=== PATIENT | female | born 1960 | race Caucasian/White ===

== ENCOUNTER → 2017-11-05 | Outpatient (CLI) | payer MEDICAID, SELFPAY | PROVIDERS: Visit Provider Orthopaedic Surgery Orthopaedic Surgery of the Spine | DX: M54.2 Cervicalgia (principal); R20.0 Anesthesia of skin | CPT/HCPCS: 72141; 76376 ==

== ENCOUNTER 2017-11-11 09:35 | Emergency (ER) | payer MEDICAID, SELFPAY | END 2017-11-11 12:58 | disposition home or self-care (01) | PROVIDERS: Emergency Provider Emergency Medicine; Family Provider Internal Medicine; Visit Provider Emergency Medicine | DX: G44.89 Other headache syndrome (principal); J32.9 Chronic sinusitis, unspecified; R55 Syncope and collapse; I10 Essential (primary) hypertension; E78.5 Hyperlipidemia, unspecified; Z88.0 Allergy status to penicillin | CPT/HCPCS: 70450; 70486; 71020; 80053; 81001; 82550; 82553; 84484; 85025; 87070; 87430; 87804; 93005; 96365; 96375; 99285 ==

== ENCOUNTER 2017-11-13 10:37 | Emergency (ER) | payer MEDICAID, SELFPAY | END 2017-11-13 13:00 | disposition home or self-care (01) | PROVIDERS: Emergency Provider Emergency Medicine; Family Provider Internal Medicine; Visit Provider Emergency Medicine | DX: T67.1XXA Heat syncope, initial encounter; H65.03 Acute serous otitis media, bilateral | CPT/HCPCS: 36415; 70450; 71020; 80053; 82550; 82553; 84484; 85025; 93005; 93041; 99284 ==

== ENCOUNTER → 2017-11-16 15:09 | Outpatient (CLI) | payer MEDICAID, SELFPAY | PROVIDERS: PCP Internal Medicine; Visit Provider Internal Medicine | DX: R55 Syncope and collapse (principal) | CPT/HCPCS: 93225; 93226 ==

== ENCOUNTER → 2017-11-22 13:24 | Outpatient (CLI) | payer MEDICAID, SELFPAY ==
--- NOTE | 2017-11-22 13:26 | CA_ITS ---
PROCEDURE: 2-D M-mode and color Doppler study INDICATIONS FOR THE TEST: Chest pain COPD Heart Murmur Tobacco Smoking Palpitations Fatigue SyncopeX Edema HypertensionXDiabetes Mellitus Rheumatic Fever SOB RIOJAS Obesity HyperlipidemiaX Family History HD Additional History PATIENT INFORMATION HEIGHT: 63 WEIGHT:163 GENDER: Female B/P:140/80 2-D/M-MODE INTERPRETATION: 2-D MEASUREMENTS OBSERVED VALUES IN CMS Right Ventricular Dimension (RVDd) .9 Interventricular Septum (Thickness)(IVsd) .8 Left Ventricular Internal Dimensions(LVIDd) 4.3 Left Ventricular Posterior Wall (Thickness)(LVPWd) .8 Aortic Root 3.4 Aortic Cusp Separation 1.7 Left Atrial Dimensions (LAD) 3.0 2D 1. Left atrium is qualitatively mildly enlarged, left ventricle is normal size, left ventricle wall thickness is upper limit of normal, there is preserved left ventricular systolic function, visually estimated ejection fraction 55% with no obvious regional wall motion abnormality. 2. The right atrium and right ventricle are normal size and contractility. 3. The aortic valve is minimally thickened and fibrosed. 4. The mitral and tricuspid valve are structurally normal. 5. The pulmonic valve is poorly visualized. 6. No significant pericardial effusion noted. DOPPLER INTERROGATION: Doppler interrogation of the aortic, mitral and tricuspid valvular presence of mild mitral and tricuspid regurgitation, calculated right ventricular systolic pressure is 44 mmHg consistent with moderate pulmonary hypertension, grade 1 diastolic dysfunction seen without tissue Doppler evidence of raised left atrial pressure. CONCLUSION: 1. Mildly enlarged left atrium, normal left ventricular size, preserved left ventricular systolic function, visually estimated ejection fraction 55% with no obvious regional wall motion abnormality, grade 1 diastolic dysfunction seen without tissue Doppler evidence of raised left atrial pressure. 2. Mild mitral and tricuspid regurgitation. 3. No significant pericardial effusion noted.
== END ==
PROVIDERS: Family Provider Internal Medicine; PCP Internal Medicine; Visit Provider Internal Medicine
DX: R55 Syncope and collapse (principal)
CPT/HCPCS: 93306

== ENCOUNTER → 2017-12-13 10:48 | Outpatient (POV) | payer MEDICAID, SELFPAY | PROVIDERS: Family Provider Internal Medicine; PCP Internal Medicine; Visit Provider Specialist | DX: R20.0 Anesthesia of skin (principal); G56.03 Carpal tunnel syndrome, bilateral upper limbs | CPT/HCPCS: 95910; 95886 ==

== ENCOUNTER → 2017-12-27 14:06 | Outpatient (POV) | payer MEDICAID, SELFPAY ==
[2017-12-27 14:11] VITALS: BP 147/83; PULSE 66; RESP 18; O2SAT 98; BMI 28.8
--- NOTE | 2017-12-27 14:50 | HMH.PAINSOAP ---
[facility] Pain Management SOAP Note Subjective:: Patient is a pleasant 57-year-old white female who we are treating for pain secondary to bilateral sacroiliitis. She was recently scheduled for a left SI joint injection however due to illness was unable to make it to her appointment. Patient is feeling much better now however she is having some issues with her blood pressure. She is meeting with her primary care physician on Wednesday to address this issue. Patient rates her pain a 5 out of 10 today. She states that it gets worse when she is standing for long periods of time on a hard floor. And is alleviated with sitting down. However this can sometimes be uncomfortable as well. Patient has had sacroiliac injections in the past with significant relief. Patient wishes to move forward with bilateral sacroiliac joint injections. Objective:: Physical Exam General: Alert and oriented x3, no acute distress, pleasant and cooperative, [on room air] Lungs: Resps E/U, Symmetrical chest expansion Musculoskeletal: Flexion and extension of lumbar spine somewhat guarded secondary to pain, deep tendon reflexes normal, strength in upper and lower extremities [5/5], slightly antalgic gait noted, positive Marii's test bilaterally. 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 Patient was told that if primary care physician felt that blood pressure issue would be contradictory to the injection to let us know. Patient states she is feeling much better now. I believe that this would be a good injection for her due to the efficacy of it in the past. This note was dictated using voice recognition software may include errors and omissions.
--- NOTE | 2017-12-27 14:54 | P.CONS_ITS ---
[facility] Pain Management SOAP Note Subjective:: Patient is a pleasant 57-year-old white female who we are treating for pain secondary to bilateral sacroiliitis. She was recently scheduled for a left SI joint injection however due to illness was unable to make it to her appointment. Patient is feeling much better now however she is having some issues with her blood pressure. She is meeting with her primary care physician on Wednesday to address this issue. Patient rates her pain a 5 out of 10 today. She states that it gets worse when she is standing for long periods of time on a hard floor. And is alleviated with sitting down. However this can sometimes be uncomfortable as well. Patient has had sacroiliac injections in the past with significant relief. Patient wishes to move forward with bilateral sacroiliac joint injections. Objective:: Physical Exam General: Alert and oriented x3, no acute distress, pleasant and cooperative, [ on room air] Lungs: Resps E/U, Symmetrical chest expansion Musculoskeletal: Flexion and extension of lumbar spine somewhat guarded secondary to pain, deep tendon reflexes normal, strength in upper and lower extremities [5/5], slightly antalgic gait noted, positive Marii's test bilaterally. Neurological: speech clear, handkerchief folder equal, no gross sensory deficits Assessment:: Bilateral sacroiliitis Plan:: We will plan a bilateral SI joint injection. Patient was told that if primary care physician felt that blood pressure issue would be contradictory to the injection to let us know. Patient states she is feeling much better now. I believe that this would be a good injection for her due to the efficacy of it in the past. This note was dictated using voice recognition software may include errors and omissions.
== END ==
PROVIDERS: Family Provider Internal Medicine; PCP Internal Medicine; Visit Provider Clinical Nurse Specialist Family Health
DX: M46.1 Sacroiliitis, not elsewhere classified (principal)
CPT/HCPCS: 99212

== ENCOUNTER → 2018-01-07 15:02 | Day surgery (SDC) | payer MEDICAID, SELFPAY ==
[2018-01-07 15:07] VITALS: BP 146/82; PULSE 75; RESP 18; TEMP 36.6; O2SAT 97; BMI 28.8
--- NOTE | 2018-01-07 15:30 | HMH.PMPROC ---
- Procedure Date: 01/07/18 Time: 15:30 Anesthesiologist:: Davidson Perdomo MD Complications:: None Pre-procedure Diagnosis:: Sacroiliitis Post-procedure Diagnosis:: Same Indications for Procedure:: This patient is a pleasant 57-year-old white female who we are treating for bilateral hip pain. She is tender over both SI joints. Marii's test is positive bilaterally. We will do bilateral SI joint injections today to see if this gives her some relief. Procedure Details:: B/L SI joint injection under fluoroscopy Informed consent was obtained and the risks and benefits of the procedure was explained to the patient. The patient was taken to the procedure room and placed prone on the procedure table. The patient was prepped using ChloraPrep. The skin and subcutaneous tissues overlying the SI joints were anesthetized using lidocaine. I placed a 22-gauge needle first in the left SI joint and second in the right SI joint. Needle placement was confirmed with dye. After this we injected 5 mL bupivacaine 0.25% and Depo-Medrol 40 mg into each SI joint. Patient tolerated the procedure well with no complication. Plan and Disposition:: We will follow-up with her in 2 weeks. We will reevaluate her symptoms at that time.
[2018-01-07 15:36] VITALS: BP 161/84; PULSE 82; RESP 18
[2018-01-07 15:38] VITALS: BP 154/88; PULSE 76; RESP 18
[2018-01-07 16:25] VITALS: BP 131/88; PULSE 68; RESP 18; TEMP 36.6; O2SAT 96
== END ==
PROVIDERS: Family Provider Internal Medicine; PCP Internal Medicine; Visit Provider Anesthesiology
DX: M46.1 Sacroiliitis, not elsewhere classified (principal)
CPT/HCPCS: 27096; G0260; J1030; Q9966

== ENCOUNTER → 2018-01-25 14:51 | Outpatient (POV) | payer MEDICAID, SELFPAY ==
[2018-01-25 15:00] VITALS: BP 126/81; PULSE 76; RESP 16; O2SAT 97; BMI 28.3
--- NOTE | 2018-01-25 15:57 | HMH.PAINSOAP ---
[facility] Pain Management SOAP Note Subjective:: Patient is a very pleasant 57-year-old white female who presents today for follow-up after bilateral SI joint injections. Patient is having significant relief from her injections and states that she is not having any pain at this time. Patient is continuing to have right shoulder pain. She is seen Dr. Hanson for this. She states that she may have to have surgery again. Patient does have some left hip pain moves a certain way. Patient does still work full-time. Patient does not have any brace or anything giving her support during her work. ROS General: no recent weight change, no fever, no sleep disturbances Respiratory: no cough, no shortness of air, no recurring pulmonary infections Cardiovascular/Peripheral Vascular: No chest pain, No palpitations, no edema, no shortness of breath. Gastrointestinal: no incontinence, normal bowel movements reported Genitourinary: no incontinence Musculoskeletal: SI joint pain, right shoulder pain Psychiatric: normal mood/ affect Neurological: [denies weakness in extremities], [denies balance issues] Objective:: Physical Exam General: Alert and oriented x3, no acute distress, pleasant and cooperative, [on room air] Lungs: Resps E/U, Symmetrical chest expansion, Eyes: PERRL Musculoskeletal: Flexion and extension of lumbar spine somewhat guarded secondary to pain, deep tendon reflexes normal, strength in upper and lower extremities [5/5], slightly antalgic gait noted Neurological: speech clear, rehab assistant equal, no gross sensory deficits Assessment:: Sacroiliitis Plan:: We will order an SI belt or brace for this patient. I will give her prescription or order for this and we will see if her insurance will cover it. I believe this will be helpful for her during her long work hours. Patient is doing well after her SI joint injection. We will follow-up with her in 3 months and reevaluate her symptoms at that time. Patient has been instructed to call the office if she has a need for us before then. This note was dictated using voice recognition software and may contain errors or omissions
== END ==
PROVIDERS: Family Provider Internal Medicine; PCP Internal Medicine; Visit Provider Clinical Nurse Specialist Family Health
DX: M46.1 Sacroiliitis, not elsewhere classified (principal)
CPT/HCPCS: 99212

== ENCOUNTER → 2018-02-25 10:25 | Outpatient (CLI) | payer MEDICAID, SELFPAY ==
[2018-02-25 11:55] LABS: Thyroid Stimulating Hormone 1.35 uIU/ml (0.358-3.740)
== END ==
PROVIDERS: Visit Provider Internal Medicine
DX: L65.9 Nonscarring hair loss, unspecified (principal)
CPT/HCPCS: 36415; 84443

== ENCOUNTER → 2018-04-26 08:43 | Outpatient (POV) | payer MEDICAID, SELFPAY ==
--- NOTE | 2018-04-26 09:05 | HMH.PAINSOAP ---
[facility] Pain Management SOAP Note Subjective:: Patient is a pleasant 57-year-old white female who presents today for follow-up. Patient has had several rounds of SI joint injections with good relief however today she is presenting with more low back pain radiating into her bilateral hips and legs. Patient does not have any lumbar imaging. Patient rates her pain today a 3 out of 10 however if she stands for long periods of time during work it elevates an 8 out of 10. ROS General: no recent weight change, no fever, no sleep disturbances Respiratory: no cough, no shortness of air, no recurring pulmonary infections Cardiovascular/Peripheral Vascular: No chest pain, No palpitations, no edema, no shortness of breath. Gastrointestinal: no incontinence, normal bowel movements reported Genitourinary: no incontinence Musculoskeletal: SI joint pain, low back pain, bilateral leg pain Psychiatric: normal mood/ affect Neurological: [denies weakness in extremities], [denies balance issues] Objective:: Physical Exam General: Alert and oriented x3, no acute distress, pleasant and cooperative, [on room air] Lungs: Resps E/U, Symmetrical chest expansion, Eyes: PERRL Musculoskeletal: Flexion and extension of lumbar spine somewhat guarded secondary to pain, deep tendon reflexes normal, strength in upper and lower extremities [5/5], [abnormal gait noted], bilateral straight leg raise test positive at 30? Neurological: speech clear, otologist equal, no gross sensory deficits Assessment:: Low back pain, sacroiliitis Plan:: We will schedule lumbar MRI. Patient will return after this so that we can move forward with the plan of care. Patient has been instructed to call the office if she has any issues prior to this. Patient has tried and failed injections, physical therapy, stretching therapies, medications, anti-inflammatories. This note was dictated using voice recognition software and may contain errors or omissions
--- NOTE | 2018-04-26 09:08 | P.CONS_ITS ---
[facility] Pain Management SOAP Note Subjective:: Patient is a pleasant 57-year-old white female who presents today for follow- up. Patient has had several rounds of SI joint injections with good relief however today she is presenting with more low back pain radiating into her bilateral hips and legs. Patient does not have any lumbar imaging. Patient rates her pain today a 3 out of 10 however if she stands for long periods of time during work it elevates an 8 out of 10. ROS General: no recent weight change, no fever, no sleep disturbances Respiratory: no cough, no shortness of air, no recurring pulmonary infections Cardiovascular/Peripheral Vascular: No chest pain, No palpitations, no edema, no shortness of breath. Gastrointestinal: no incontinence, normal bowel movements reported Genitourinary: no incontinence Musculoskeletal: SI joint pain, low back pain, bilateral leg pain Psychiatric: normal mood/ affect Neurological: [denies weakness in extremities], [denies balance issues] Objective:: Physical Exam General: Alert and oriented x3, no acute distress, pleasant and cooperative, [ on room air] Lungs: Resps E/U, Symmetrical chest expansion, Eyes: PERRL Musculoskeletal: Flexion and extension of lumbar spine somewhat guarded secondary to pain, deep tendon reflexes normal, strength in upper and lower extremities [5/5], [abnormal gait noted], bilateral straight leg raise test positive at 30? 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 Patient will return after this so that we can move forward with the plan of care. Patient has been instructed to call the office if she has any issues prior to this. Patient has tried and failed injections, physical therapy, stretching therapies, medications, anti- inflammatories. This note was dictated using voice recognition software and may contain errors or omissions
[2018-04-26 09:13] VITALS: BP 141/92; PULSE 64; RESP 18; O2SAT 99; BMI 28.8
== END ==
PROVIDERS: Family Provider Internal Medicine; PCP Internal Medicine; Visit Provider Clinical Nurse Specialist Family Health
DX: M46.1 Sacroiliitis, not elsewhere classified (principal)
CPT/HCPCS: 99212

== ENCOUNTER → 2018-05-10 07:50 | Outpatient (CLI) | payer MEDICAID, SELFPAY ==
--- NOTE | 2018-05-10 07:57 | MR_ITS ---
MR lumbar spine wo con, MR 3-d myelogram/MRCP HISTORY: LBP with Bilateral Hip pain. Bilateral Leg pain. Numbness and tingling in LT leg. Symptoms [id number]. No trauma. ITS.REASON: BACK PAIN ORDERING PHYSICIAN: Lissa Solares PATIENT AGE: 57 years Comparison: X-RAY 07/05/16, MRI 06/19/14 TECHNIQUE: Standard multiplanar multiecho sequences are performed without contrast. 3-D MIP and myelographic images are also rendered and reviewed FINDINGS: The spinal cord ends at the L1-L2 level. L1-L2, L2-L3, L3-L4 have an unremarkable appearance. L4-L5: Minimal left foraminal disc protrusion causing mild left-sided foraminal narrowing. This is similar when compared to the previous exam L5-S1: Unremarkable. Fluid signal intensity noted in the renal suzanna bilaterally and could be due to either hilar versus or peripelvic renal cyst. CT urography may confirm IMPRESSION: 1. Overall no significant change small left foraminal disc protrusion with mild left foraminal narrowing 2. Bilateral parapelvic renal cyst versus hydronephrosis
--- NOTE | 2018-05-10 07:57 | MR_ITS ---
MR lumbar spine wo con, MR 3-d myelogram/MRCP HISTORY: LBP with Bilateral Hip pain. Bilateral Leg pain. Numbness and tingling in LT leg. Symptoms [id number]. No trauma. ITS.REASON: BACK PAIN ORDERING PHYSICIAN: Lissa Solares PATIENT AGE: 57 years Comparison: X-RAY 07/05/16, MRI 06/19/14 TECHNIQUE: Standard multiplanar multiecho sequences are performed without contrast. 3-D MIP and myelographic images are also rendered and reviewed FINDINGS: The spinal cord ends at the L1-L2 level. L1-L2, L2-L3, L3-L4 have an unremarkable appearance. L4-L5: Minimal left foraminal disc protrusion causing mild left-sided foraminal narrowing. This is similar when compared to the previous exam L5-S1: Unremarkable. Fluid signal intensity noted in the renal suzanna bilaterally and could be due to either hilar versus or peripelvic renal cyst. CT urography may confirm IMPRESSION: 1. Overall no significant change small left foraminal disc protrusion with mild left foraminal narrowing 2. Bilateral parapelvic renal cyst versus hydronephrosis
== END ==
PROVIDERS: Family Provider Internal Medicine; PCP Internal Medicine; Visit Provider Clinical Nurse Specialist Family Health
DX: M54.5 Low back pain (principal)
CPT/HCPCS: 72148; 76376

== ENCOUNTER → 2018-05-16 09:59 | Outpatient (POV) | payer MEDICAID, SELFPAY ==
[2018-05-16 10:26] VITALS: BP 152/91; PULSE 67; RESP 18; O2SAT 98; BMI 28.8
--- NOTE | 2018-05-16 11:11 | HMH.PAINSOAP ---
[facility] Pain Management SOAP Note Subjective:: Patient is a pleasant 57-year-old white female who presents today for follow-up after recent lumbar MRI. Patient states she still having low back pain radiating into her her bilateral hips and legs the left side being worse. Patient has had SI joint erections in the past with good relief however this pain is different and worsening. Patient's MRI is fairly benign however at the L4-L5 level she does have a foraminal disc protrusion. patient rates her pain a 6 out of 10 today. ROS General: no recent weight change, no fever, no sleep disturbances Respiratory: no cough, no shortness of air, no recurring pulmonary infections Cardiovascular/Peripheral Vascular: No chest pain, No palpitations, no edema, no shortness of breath. Gastrointestinal: no incontinence, normal bowel movements reported Genitourinary: no incontinence Musculoskeletal: Back pain, left leg pain, right leg pain Psychiatric: normal mood/ affect Neurological: [denies weakness in extremities], [denies balance issues] Objective:: Physical Exam General: Alert and oriented x3, no acute distress, pleasant and cooperative, [on room air] Lungs: Resps E/U, Symmetrical chest expansion, Eyes: PERRL Musculoskeletal: Flexion and extension of lumbar spine somewhat guarded secondary to pain, deep tendon reflexes normal, strength in upper and lower extremities [5/5], [abnormal gait noted] positive straight leg raise test bilaterally at 30? Neurological: speech clear, collision repairer equal, no gross sensory deficits Assessment:: Degenerative disc disease of lumbar spine, lumbar radiculopathy, sacroiliitis Plan:: We will schedule an L4-L5 lumbar epidural steroid injection for the patient. I believe that this may be beneficial given her symptomology. Patient's tried and failed physical therapy, anti-inflammatories, medications. Patient is continuing to do home stretching program and continuing to try to work. I will follow-up with the patient after her injection. Patient is not on any anticoagulation therapy. This note was dictated using voice recognition software and may contain errors or omissions
--- NOTE | 2018-05-16 11:14 | P.CONS_ITS ---
[facility] Pain Management SOAP Note Subjective:: Patient is a pleasant 57-year-old white female who presents today for follow-up after recent lumbar MRI. Patient states she still having low back pain radiating into her her bilateral hips and legs the left side being worse. Patient has had SI joint erections in the past with good relief however this pain is different and worsening. Patient's MRI is fairly benign however at the L4-L5 level she does have a foraminal disc protrusion. patient rates her pain a 6 out of 10 today. ROS General: no recent weight change, no fever, no sleep disturbances Respiratory: no cough, no shortness of air, no recurring pulmonary infections Cardiovascular/Peripheral Vascular: No chest pain, No palpitations, no edema, no shortness of breath. Gastrointestinal: no incontinence, normal bowel movements reported Genitourinary: no incontinence Musculoskeletal: Back pain, left leg pain, right leg pain Psychiatric: normal mood/ affect Neurological: [denies weakness in extremities], [denies balance issues] Objective:: Physical Exam General: Alert and oriented x3, no acute distress, pleasant and cooperative, [ on room air] Lungs: Resps E/U, Symmetrical chest expansion, Eyes: PERRL Musculoskeletal: Flexion and extension of lumbar spine somewhat guarded secondary to pain, deep tendon reflexes normal, strength in upper and lower extremities [5/5], [abnormal gait noted] positive straight leg raise test bilaterally at 30? Neurological: speech clear, button maker and installer equal, no gross sensory deficits Assessment:: Degenerative disc disease of lumbar spine, lumbar radiculopathy, sacroiliitis Plan:: We will schedule an L4-L5 lumbar epidural steroid injection for the patient. I believe that this may be beneficial given her symptomology. Patient's tried and failed physical therapy, anti-inflammatories, medications. Patient is continuing to do home stretching program and continuing to try to work. I will follow-up with the patient after her injection. Patient is not on any anticoagulation therapy. This note was dictated using voice recognition software and may contain errors or omissions
== END ==
PROVIDERS: Family Provider Internal Medicine; PCP Internal Medicine; Visit Provider Clinical Nurse Specialist Family Health
DX: M54.16 Radiculopathy, lumbar region (principal)
CPT/HCPCS: 99212

== ENCOUNTER → 2018-05-31 09:27 | Outpatient (POV) | payer MEDICAID, SELFPAY ==
[2018-05-31 09:42] VITALS: BP 145/85; PULSE 58; RESP 18; O2SAT 98; BMI 28.8
--- NOTE | 2018-05-31 09:50 | HMH.PAINSOAP ---
[facility] Pain Management SOAP Note Subjective:: Patient is a pleasant 57-year-old white female who presents today for follow-up. Patient was scheduled for lumbar epidural steroid injection however she states she would not like to move forward with this. Patient states that when she was and had an epidural she was told that she had a crooked spine. Patient states she has a fear of needles. Patient has had SI joint injections in the past with good relief however her pain is different and worsening. Patient's MRI does show degenerative changes at the L4-L5 level. Patient rates her pain a 2 out of 10 today. Patient also stating that she is going to not be returning to work. Patient got approved for her disability. Patient would like to discuss potential oral methods of controlling her pain. I discussed with her that we would not be medically managing her without first failure of injections. I discussed with the patient that she is welcome to return at any time if her pain worsens. ROS General: no recent weight change, no fever, no sleep disturbances Respiratory: no cough, no shortness of air, no recurring pulmonary infections Cardiovascular/Peripheral Vascular: No chest pain, No palpitations, no edema, no shortness of breath. Gastrointestinal: no incontinence, normal bowel movements reported Genitourinary: no incontinence Musculoskeletal: Back pain Psychiatric: normal mood/ affect Neurological: [denies weakness in extremities], [denies balance issues] Objective:: Physical Exam General: Alert and oriented x3, no acute distress, pleasant and cooperative, [on room air] Lungs: Resps E/U, Symmetrical chest expansion, Eyes: PERRL Musculoskeletal: Flexion and extension of lumbar spine somewhat guarded secondary to pain, deep tendon reflexes normal, strength in upper and lower extremities [5/5], slightly antalgic gait noted Neurological: speech clear, 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 Patient is welcome to return at any time. This note was dictated using voice recognition software and may contain errors or omissions
--- NOTE | 2018-05-31 09:53 | P.CONS_ITS ---
[facility] Pain Management SOAP Note Subjective:: Patient is a pleasant 57-year-old white female who presents today for follow- up. Patient was scheduled for lumbar epidural steroid injection however she states she would not like to move forward with this. Patient states that when she was and had an epidural she was told that she had a crooked spine. Patient states she has a fear of needles. Patient has had SI joint injections in the past with good relief however her pain is different and worsening. Patient's MRI does show degenerative changes at the L4-L5 level. Patient rates her pain a 2 out of 10 today. Patient also stating that she is going to not be returning to work. Patient got approved for her disability. Patient would like to discuss potential oral methods of controlling her pain. I discussed with her that we would not be medically managing her without first failure of injections. I discussed with the patient that she is welcome to return at any time if her pain worsens. ROS General: no recent weight change, no fever, no sleep disturbances Respiratory: no cough, no shortness of air, no recurring pulmonary infections Cardiovascular/Peripheral Vascular: No chest pain, No palpitations, no edema, no shortness of breath. Gastrointestinal: no incontinence, normal bowel movements reported Genitourinary: no incontinence Musculoskeletal: Back pain Psychiatric: normal mood/ affect Neurological: [denies weakness in extremities], [denies balance issues] Objective:: Physical Exam General: Alert and oriented x3, no acute distress, pleasant and cooperative, [ on room air] Lungs: Resps E/U, Symmetrical chest expansion, Eyes: PERRL Musculoskeletal: Flexion and extension of lumbar spine somewhat guarded secondary to pain, deep tendon reflexes normal, strength in upper and lower extremities [5/5], slightly antalgic gait noted 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 Patient is welcome to return at any time. This note was dictated using voice recognition software and may contain errors or omissions
== END ==
PROVIDERS: Family Provider Internal Medicine; PCP Internal Medicine; Visit Provider Clinical Nurse Specialist Family Health
DX: M46.1 Sacroiliitis, not elsewhere classified (principal)
CPT/HCPCS: 99212

== ENCOUNTER → 2018-09-22 08:49 | Outpatient (CLI) | payer MEDICAID, SELFPAY ==
[2018-09-22 11:26] LABS: Anion Gap 13.6 mEq/L (5-15); Blood Urea Nitrogen 15 mg/dL (7-18); Calcium 9.3 mg/dL (8.5-10.1); Carbon Dioxide 31 mmol/L (21.0-32.0); Chloride 100 mmol/L (98-107); Creatinine,Serum 0.76 mg/dL (0.55-1.02); Estimated Glomerular Filt Rate 78 ml/min (>60); GFR (African American) 94 ML/MIN (>60); Glucose 88 mg/dL (74-106); Potassium 4.6 mmoL/L (3.5-5.1); Sodium 140 mmol/L (136-145)
== END ==
PROVIDERS: Visit Provider Internal Medicine
DX: I10 Essential (primary) hypertension (principal)
CPT/HCPCS: 36415; 80048

== ENCOUNTER → 2018-11-11 11:46 | Outpatient (CLI) | payer MEDICAID, SELFPAY ==
--- NOTE | 2018-11-11 11:50 | XR_ITS ---
XR chest 2V HISTORY: ITS.REASON: ? RT LATERAL RIB FX,PAIN Right lateral chest and rib pain. ORDERING PHYSICIAN: Pravin Olson PATIENT AGE: 58 years Technique: PA and lateral chest COMPARISON: Previous PA and lateral chest 08/13/2018. FINDINGS: The lungs are well expanded clear with no discrete acute findings. Subtle coarsening markings right infrahilar region probably stable mild apical pleural parenchymal scarring stable/minimal. There are subtle elevation left hemidiaphragm. Unchanged. Heart, suzanna and mediastinal structures satisfactory. No pneumothorax. No pleural effusion. Chest wall with no prominent findings breast see no definitive right rib fracture. T-spine is intact. Normal pulmonary vascularity IMPRESSION . Lungs clear. Nothing definitely acute. No obvious chest wall or right rib abnormalities evident on this this standard PA & lateral chest film. No pneumothorax no pleural effusion.
== END ==
PROVIDERS: PCP Internal Medicine; Visit Provider Internal Medicine
DX: R07.81 Pleurodynia (principal)
CPT/HCPCS: 71046

== ENCOUNTER → 2019-03-08 10:00 | Outpatient (CLI) | payer MEDICARE, MEDICAID, SELFPAY ==
--- NOTE | 2019-03-08 10:06 | XR_ITS ---
XR knee LT 2V HISTORY: ITS.REASON: LT KNEE PAIN ORDERING PHYSICIAN: Pravin Olson PATIENT AGE: 58 years COMPARISON: None FINDINGS: No fracture or dislocation. No lytic or blastic change. Normal mineralization. There are minimal osteoarthritic changes of the medial compartment IMPRESSION: Minimal osteoarthritis otherwise negative
== END ==
PROVIDERS: PCP Internal Medicine; Visit Provider Internal Medicine
DX: M25.562 Pain in left knee (principal)
CPT/HCPCS: 73560

== ENCOUNTER 2019-09-13 14:52 | Outpatient (RCR) | payer MEDICARE, MEDICAID, SELFPAY | END 2019-09-13 15:10 | disposition home or self-care (01) | LOC: PT 14:52 | PROVIDERS: Visit Provider Orthopaedic Surgery | DX: S93.491A Sprain of other ligament of right ankle, initial encounter (principal) | CPT/HCPCS: 97760 ==

== ENCOUNTER → 2019-11-28 15:08 | Outpatient (CLI) | payer MEDICARE, SELFPAY ==
--- NOTE | 2019-11-28 15:19 | XR_ITS ---
PROCEDURE: XR THORACIC SPINE 3V CLINICAL INDICATION: THORACIC PAIN COMPARISON: CXR2V XR chest 2V from 11/11/2018 FINDINGS: There is minimal upper thoracic curvature convex left. There is mild wedging involving what appears to represent T9 which could represent an acute mild wedge compression fracture. MRI may confirm. IMPRESSION: Mild wedging of T9 which may be acute otherwise negative Dictated by: Pierre Lindsey MD 11/28/2019 16:11 Electronically signed by Pierre Lindsey MD in [place] 11/28/2019 16:11
== END ==
PROVIDERS: PCP Internal Medicine; Visit Provider Internal Medicine
DX: M54.6 Pain in thoracic spine (principal)
CPT/HCPCS: 72072

== ENCOUNTER 2020-01-09 09:00 | Outpatient (RCR) | payer MEDICARE, SELFPAY | END 2020-01-09 10:05 | disposition home or self-care (01) | LOC: PT 09:00 | PROVIDERS: PCP Internal Medicine; Visit Provider Internal Medicine | DX: M25.511 Pain in right shoulder (principal); M54.6 Pain in thoracic spine; M54.2 Cervicalgia | CPT/HCPCS: 97010; 97014; 97035; 97110; 97140; 97163; 97164; G0283 ==

== ENCOUNTER → 2020-08-29 11:56 | Outpatient (CLI) | payer MEDICARE, SELFPAY ==
--- NOTE | 2020-08-29 12:00 | XR_ITS ---
PROCEDURE: XR LUMBAR SPINE MIN 4V CLINICAL INDICATION: UPPER LUMBAR BACK PAIN COMPARISON: CR LS5 LUMBAR SPINE 5 VIEWS from 07/05/2016 FINDINGS: No fracture or dislocation. No lytic or blastic change. There is normal mineralization. Mild facet arthritic changes once again noted at L4-L5 and S1. The disc spaces are well preserved. Other findings:None. IMPRESSION: Mild facet arthritic changes otherwise negative. No change with no acute finding Dictated by: Pierre Lindsey MD 08/29/2020 12:48 Pierre Lindsey MD in [place] 08/29/2020 12:48
== END ==
PROVIDERS: PCP Internal Medicine; Visit Provider Internal Medicine
DX: M54.9 Dorsalgia, unspecified (principal); M54.5 Low back pain
CPT/HCPCS: 72110

== ENCOUNTER → 2021-01-31 15:25 | Outpatient (CLI) | payer MEDICARE, SELFPAY ==
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
== END ==
PROVIDERS: PCP Internal Medicine; Visit Provider Internal Medicine
DX: M79.604 Pain in right leg (principal)
CPT/HCPCS: 73590

== ENCOUNTER → 2021-04-22 08:59 | Outpatient (CLI) | payer MEDICARE, SELFPAY ==
[2021-04-22 10:17] LABS: Cholesterol 251 mg/dl (140-200); Triglycerides 159 mg/dl (30-150); VLDL Cholesterol 32 mg/dL (0-40)
[2021-04-22 10:18] LABS: Chol/HDL Ratio 4.2 (1-3.5); HDL Cholesterol 60 mg/dl (40-60)
[2021-04-22 10:28] LABS: Direct LDL Cholesterol 151.25 mg/dL (100-129)
[2021-04-22 14:28] LABS: Alanine Aminotransferase 14 U/L (12-78)
== END ==
PROVIDERS: Visit Provider Internal Medicine
DX: E78.5 Hyperlipidemia, unspecified (principal)
CPT/HCPCS: 36415; 80061; 84460

== ENCOUNTER 2021-06-21 18:13 | Emergency (ER) | payer MEDICARE, SELFPAY ==
[2021-06-21 18:13] VITALS: BP 129/76; PULSE 110; RESP 19; TEMP 37.4; O2SAT 96; BMI 28.8
--- NOTE | 2021-06-21 18:47 | HMH.EDUTC ---
[facility] [place] Clinical Impression: Exposure to COVID-19 virus Disposition: Home, Self-Care Condition on Discharge: Good Instructions: Preventing the Spread of Coronavirus Discharge Instructions Additional Instructions: You have been tested for COVID19. Please isolate as if you are positive until test results received. Prescriptions: predniSONE [Prednisone 20mg Tab] 20 mg PO BID 5 Days #10 tab Transmission Status: Pending to [id number] Azithromycin [Z-Jeffrey 250mg Tab] 250 mg PO DIRECTED #6 tab Transmission Status: Pending to [id number] Referrals: Pravin Olson [Primary Care Provider] - Time of Disposition: 18:50 Medical Decision Making - Michael Inquiry Pt receiving controlled substance: No Orders (Tests/Meds): ORDERS Category Date Time Status Covid-19 Nasal PCR ([facility]) Routine Lab 06/21/21 18:31 Received [facility] [place] HPI - General Stated complaint: covid test Time Seen by Provider: 06/21/21 18:47 - History of Present Illness Provider Complaint: Patient has felt poorly for a week. Has had headache, congestion, cough, fever. Has been treated by PCP for a sinus infection. Passed out two days ago because she didn't eat or drink enough. No vomiting or diarrhea. Granddaughter tested positive for COVID19 this am. Onset (ago): day(s) (6) Location: head, chest Relieving factors: none Exacerbating factors: none Associated symptoms: cough, fever/chills, malaise Treatments prior to arrival: none - Related Data Home Medications Medication Instructions Recorded Confirmed Atorvastatin Calcium [Atorvastatin 20 mg PO DAILY 01/25/18 11/01/19 20mg Tab] Ibuprofen [Ibuprofen 600mg 600 mg PO TID 01/25/18 11/01/19 Tablet] lisinopril 10 1 tab PO DAILY 09/13/19 11/01/19 mg-hydrochlorothiazide 12.5 mg tablet Previous Rx's Medication Instructions Recorded Fluticasone Propionate [Flonase 2 spr NS DAILY #1 bottle 08/13/18 50mcg nasal spray 16gm] Azithromycin [Z-Jeffrey 250mg Tab] 250 mg PO DIRECTED #6 tab 06/21/21 predniSONE [Prednisone 20mg 20 mg PO BID 5 Days #10 tab 08/07/21 Tab] Allergies Allergy/AdvReac Type Severity Reaction Status Date / Time cephalexin [CEPHALEXIN] Allergy Unknown Verified 11/01/19 13:36 Penicillins [PENICILLINS] Allergy Unknown Verified 11/01/19 13:36 strawberry Allergy Unknown I-HIVES Verified 11/01/19 13:36 [From STRAWBERRIES (FOOD/DRUG)] wheat [WHEAT] Allergy Unknown SNEEZING Verified 11/01/19 13:36 wool [WOOL] Allergy Unknown I-RASH Verified 11/01/19 13:36 TOMATOES (FOOD) Allergy Intermediate I-RASH Uncoded 11/01/19 13:36 From STRAWBERRIES (FOOD/DRUG) Allergy Unknown I-HIVES Uncoded 11/01/19 13:36 PEANUTS (FOOD) Allergy Unknown SWELLING Uncoded 11/01/19 13:36 [facility] History - Hepatitis A Screen Attestation statement:: This patient has been screened for Hepatitis A risk factors. I have reviewed the patient's past medical history: Yes Medical History: Reports:: Hyperlipidemia, Hypertension Denies:: Diabetes Mellitus Type 1, Diabetes Mellitus Type 2 Other Medical History: Reports: Sinus Problems Laterality Cases: Left: Lumpectomy Other Surgeries: Yes: Hysterectomy-Total, Other - Social History Smoking Status: Never smoker Alcohol Intake: never Occupational Status: employed Family Hx:: Asthma, Cancer, Diabetes, Heart Attack, Hyperlipidemia, Hypertension, Kidney Disease, Tuberculosis ROS Obtained: Yes All systems reviewed & no additional complaints - Constitutional Constitutional: Reports body ache, Reports chills, Reports fever(s), Reports headache(s), Reports malaise - ENT Ears, Nose, Mouth, and Throat: Reports nasal congestion, Reports sore throat - Respiratory Respiratory: Reports cough Physical Exam - General General appearance: alert, in no apparent distress - Head Head exam: normocephalic - Eye Eye exam: Present: PERRL - ENT ENT exam: Present: normal oropharynx, TM's norm
[2021-06-21 18:52] VITALS: BP 129/76; PULSE 110; RESP 19; TEMP 37.4; O2SAT 96
--- NOTE | 2021-06-22 11:54 | PC.NURSE ---
ATTEMPTED TO CALL PT ABOUT COVID RESULTS. NO ANSWER. WILL TRY AGAIN LATER
--- NOTE | 2021-06-22 12:00 | PC.NURSE ---
PATIENT NOTIFIED OF POSITIVE COVID TEST AT THIS TIME
== END 2021-06-21 19:29 | disposition home or self-care (01) ==
PROVIDERS: Emergency Provider Physician Assistant; PCP Internal Medicine
DX: U07.1 COVID-19 (principal); I10 Essential (primary) hypertension; E78.5 Hyperlipidemia, unspecified; Z88.0 Allergy status to penicillin; Z79.899 Other long term (current) drug therapy
CPT/HCPCS: G0463; 99202; U0003

== ENCOUNTER 2021-08-26 18:28 | Emergency (ER) | payer OTHER, SELFPAY ==
[2021-08-26 18:30] VITALS: BP 126/82; PULSE 87; RESP 16; TEMP 36.8; O2SAT 98; BMI 29.0
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
[2021-08-26 20:38] VITALS: BP 140/93; PULSE 74; RESP 16; TEMP 36.6; O2SAT 98
== END 2021-08-26 20:40 | disposition home or self-care (01) ==
PROVIDERS: Emergency Provider Emergency Medicine; PCP Internal Medicine
DX: S16.1XXA Strain of muscle, fascia and tendon at neck level, initial encounter (principal); V43.52XA Car driver injured in collision with other type car in traffic accident, initial encounter; Y92.414 Local residential or business street as the place of occurrence of the external cause
CPT/HCPCS: 70450; 71046; 72125; 99282

== ENCOUNTER → 2021-09-12 09:24 | Outpatient (CLI) | payer OTHER, SELFPAY ==
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
== END ==
PROVIDERS: PCP Internal Medicine; Visit Provider Internal Medicine
DX: M54.2 Cervicalgia (principal); M54.6 Pain in thoracic spine
CPT/HCPCS: 72146

== ENCOUNTER 2021-10-24 09:00 | Outpatient (RCR) | payer OTHER, SELFPAY ==
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
== END 2021-10-24 09:05 | disposition home or self-care (01) ==
LOC: PT 09:00
PROVIDERS: Visit Provider Internal Medicine
DX: S13.4XXA Sprain of ligaments of cervical spine, initial encounter (principal); V89.2XXA Person injured in unspecified motor-vehicle accident, traffic, initial encounter
CPT/HCPCS: 20560; 97010; 97014; 97110; 97140; 97163; G0283

== ENCOUNTER → 2021-12-03 08:55 | Outpatient (CLI) | payer MEDICARE, OTHER, SELFPAY | PROVIDERS: Visit Provider Nurse Practitioner | DX: Z20.822 Contact with and (suspected) exposure to COVID-19 (principal) | CPT/HCPCS: C9803; U0003; U0005 ==

== ENCOUNTER → 2022-03-23 15:26 | Outpatient (CLI) | payer MEDICARE, SELFPAY ==
--- NOTE | 2022-03-23 | ECG_ITS ---
APPROVED REPORT Exam: Resting ECG HR:80 bpm ECG Measurements Heart Rate 80 AXES NH 128 P 23 QRSd 104 QRS 1 QT 359 T -19 QTc 395 Conclusion SINUS RHYTHM NDST-T Changes ABNORMAL ECG Electronically signed by : Pravin Olson MD 03/30/2022 09:04:57
== END ==
PROVIDERS: PCP Internal Medicine; Visit Provider Internal Medicine
DX: R55 Syncope and collapse (principal); I10 Essential (primary) hypertension
CPT/HCPCS: 93005

== ENCOUNTER → 2022-04-02 12:11 | Outpatient (CLI) | payer MEDICARE, MEDICAID, SELFPAY ==
[2022-04-02 14:09] LABS: Basophils # 0.1 K/mm3 (0-0.2); Basophils % 1.7 % (0.1-2.0); Eosinophils # 0.2 K/mm3 (0.0-0.4); Eosinophils % 2.4 % (0.1-12.0); Hematocrit 45.6 % (37.0-47.0); Hemoglobin 15.3 g/dL (12.2-16.2); Lymphocytes # 2.1 K/mm3 (0.7-4.5); Lymphocytes % 33.5 % (10-50); Mean Corpuscular HGB Conc 33.6 g/dL (31.8-35.4); Mean Corpuscular Volume 95.3 fl (81-99); Mean Platelet Volume 7.8 fl (7.4-10.4); Monocytes # 0.4 K/mm3 (0.1-1.0); Monocytes % 7.1 % (1.7-9.3); Neutrophils # 3.5 K/mm3 (1.8-7.8); Neutrophils % 55.2 % (37.0-80.0); Platelet Count 330 K/mm3 (142-424); Red Blood Count 4.79 M/mm3 (4.20-5.40); Red Cell Distribution Width 13.5 % (11.5-17.5); White Blood Count 6.3 K/mm3 (4.8-10.8)
[2022-04-02 14:42] LABS: Chloride 101 mmol/L (98-107)
[2022-04-02 14:43] LABS: Potassium 3.7 mmoL/L (3.5-5.1); Sodium 138 mmol/L (136-145)
[2022-04-02 14:45] LABS: Alanine Aminotransferase 20 U/L (12-78); Alkaline Phosphatase 70 U/L (38-126); Anion Gap 9.7 mEq/L (5-15); Aspartate Amino Transferase 28 U/L (14-36); Bilirubin,Total 0.7 mg/dl (0.2-1.3); Blood Urea Nitrogen 19 mg/dl (7-17); Carbon Dioxide 31 mmol/L (22.0-30.0); Estimated Glomerular Filt Rate 72 ml/min (>60); GFR (African American) 88 ML/MIN (>60)
[2022-04-02 14:46] LABS: Albumin Level 4.1 g/dl (3.5-5.0); Albumin/Globulin Ratio 1.9 (1.1-1.8); Calcium 9.1 mg/dl (8.4-10.2); Chol/HDL Ratio 4.1 (1-3.5); Cholesterol 222 mg/dl (140-200); Globulin 2.2 g/dL (1.3-3.2); Glucose 98 mg/dl (74-100); HDL Cholesterol 54 mg/dl (40-60); Magnesium 1.9 mg/dl (1.6-2.3); Total Protein,Serum 6.3 g/dl (6.3-8.2); Triglycerides 187 mg/dl (30-150); VLDL Cholesterol 37 mg/dL (0-40)
[2022-04-02 14:57] LABS: Direct LDL Cholesterol 125.32 mg/dL (100-129)
[2022-04-02 15:02] LABS: Triiodothryronine (T3) Uptake 30 % (23.5-40.5)
[2022-04-02 15:03] LABS: Free Thyroxine Index 3.7 ug/dL (5.93-13.13); T4 (Thyroxine) 12.4 ug/dl (5.53-11.0)
[2022-04-02 15:17] LABS: Thyroid Stimulating Hormone 1.28 uIU/mL (0.465-4.68)
== END ==
PROVIDERS: PCP Internal Medicine; Visit Provider Nurse Practitioner
DX: R55 Syncope and collapse (principal); E78.5 Hyperlipidemia, unspecified
CPT/HCPCS: 36415; 80053; 80061; 83735; 84436; 84443; 84479; 85025; 93270

== ENCOUNTER → 2022-04-14 07:11 | Outpatient (CLI) | payer MEDICARE, SELFPAY ==
--- NOTE | 2022-04-14 07:12 | NM_ITS ---
APPROVED REPORT Exam: Nuclear Stress Test Indication: chest pain..short of breath..syncope Patient Location: Outpatient Stress Tech: Yolie Yañez [place] Tech:SHAYY Jensen RT(R)(N) Ht: 5 ft 3 in Wt: 163 lbs Bra Size: 42 d HR: 79 bpm BP: 134/76 mmHg BSA: 1.77 m2 TID: 0.99 BMI: 28.8 History: chest pain..short of breath..syncope Procedure: Patient received a 0.4 mg of intravenous Lexiscan, resting heart rate 79 bpm, resting blood pressure 134/76 mmHg, with Lexiscan maximum heart rate achived was 122 bpm which is Less than 85 % of the maximum predicted heart rate and blood pressure was 150/78 mmHg. With Lexiscan, patient denied any complaint of chest pain. Electrocardiogram Electrocardiogram showed sinus rhythm, with Lexiscan there is less than 1.[address] segment depression noted from the baseline EKG. The EKG portion of the Lexiscan is nondiagnostic. Cardiac Stress and Resting SPECT Images: Cardiac Stress and Resting SPECT images were obtained using technetium 99m Myoview 30.4 mCi stress and 10.08 mCi at rest. Gated SPECT for analysis of segmental wall motion and calculation of the ejection fraction also done. Cardiac stress and rest SPECT images show uniform myocardial activity without segmental perfusion abnormality, computer derived ejection fraction is 63% with no regional wall motion abnormality, right ventricle is normal size and contractility. Conclusion: 1. The EKG portion of the Lexiscan is nondiagnostic. 2. No scintigraphic evidence of reversible ischemia seen, compared right ejection fraction 63% with no regional wall motion abnormality, right ventricle is normal size and contractility. 3. Normal Lexiscan Myoview study. Electronically signed by : Saeed Pagan MD 04/14/2022 20:39:37
--- NOTE | 2022-04-14 09:27 | CA_ITS ---
APPROVED REPORT EXAM: Comprehensive 2D, Doppler, and color-flow Echocardiogram [employer] Driver: Sandra Murphy RT(R) Ht: 5 ft 3 in Wt: 163lbs BSA: 1.77 BP: 122/84 mmHg Indications: syncope, palpitations, fatigue, HTN, SOB, hyperlipidemia. 2D Dimensions LVOT 1.73 cm (M/F) 1.5-2.5 LA Volume 50.10 mL LA Volume Index 28.30 mL/m2 (M/F) 16-34 M-Mode Dimensions RVDd 2.57 cm (0.9-2.6) LA Diam 3.70 cm (1.9-4.0) LVDd 3.11 cm (3.5-5.7) Ao Diam 2.89 cm (2.0-3.7) LVDs 2.31 cm (3.5-5.7) IVSd 0.53 cm (0.6-1.1) PWd 0.77 cm (0.6-1.1) EF (Teich) 52.10% FS 25.70% EDV (Teich) 38.20 mL ESV (Teich) 18.30 mL LV Diastology E Decel Time 170.00 (160-240 msec) E/A Ratio 1.2 MED E' 9.00 (< 7 cm/sec) E'/MED E' Ratio 9.69 (>14) LAT E' 9.90 (<10 cm/sec) E/LAT E' Ratio 8.81 (>14) Mitral Valve MV E Max Cam. 87.00 (40-130 cm/s) MV A Velocity 71.00 (40-130 cm/s) E/A Ratio 1.23 MV Decel. Time 170.00 (160-240 ms) MV PHT 50.00 ms Left Ventricle Enlarged, left ventricle is normal size, mild concentric left ventricular hypertrophy, estimated ejection fraction 55% with no regional wall motion abnormality, diastolic parameters are inconclusive. Right Ventricle Right atrium and right ventricle are normal size and contractility. Aortic Valve Aortic valve is minimally thickened and fibrosed there is no aortic stenosis or aortic insufficiency. Mitral Valve Mitral valve is grossly normal, there is trace mitral regurgitation. Tricuspid Valve Tricuspid valve grossly normal, there is trace tricuspid regurgitation, tricuspid regurgitation jet velocity is inadequate for calculation of the right ventricular systolic pressure. Pulmonic Valve Pulmonic valve is poorly visualized. Great Vessels Aortic root is normal size. Inferior vena cava normal size with normal inspiratory collapse. Pericardium No significant pericardial effusion noted. Conclusion 1. Mildly enlarged left atrium, normal left ventricular size, mild concentric left ventricular hypertrophy, estimated ejection fraction 55% with no regional wall motion abnormality, diastolic parameters are inconclusive. 2. Trace mitral and tricuspid regurgitation. 3. No significant pericardial effusion noted. 4. Inferior vena cava normal size with normal spectral collapse. Electronically signed by : Saeed Pagan MD 04/14/2022 21:02:47
--- NOTE | 2022-04-14 09:52 | CA_ITS ---
APPROVED REPORT Exam: Pharmacologic Technologist: Yolie Yañez, Ht: 5 ft 3 in Wt: 163 lbs BSA: 1.77 m2 HR: 72 bpm BP: 134/76 mmHg Medical History Medications: Pantoprazole,,,,, Flonase,,,,, SyMBICORT,,,,, Vit D3,,,,, Zofran,,,,, Lisinopri/HCTZ,,,,, Stress Test Details Test: LEXISCAN HR Resting HR: 79 bpm Max Heart Rate (APMHR): 157.301189 bpm Max HR Achieved: 122 bpm Target HR (85% APMHR): 133.919023 bpm % of APMHR: 77.71 Recovery HR: 78 bpm BP Resting BP: 134/76 mmHg Max BP: 150/78 mmHg Recovery BP: 130.0/73.0 mmHg ECG Clinical Exercise duration: 04:03 min Highest Stage Achieved: Stress ECG Conclusion Symptoms: Chest pressure, SOA, Lightheaded. Arrhythmias/Ectopy: None ST-T Changes: No changes. Conclusion: Unremarkable Lexiscan stress, myoview images reported separately. Electronically signed by : Saeed Pagan MD 04/14/2022 20:37:13
== END ==
LOC: RAD 07:12
PROVIDERS: PCP Internal Medicine; Visit Provider Nurse Practitioner
DX: R00.0 Tachycardia, unspecified (principal); R00.2 Palpitations; R55 Syncope and collapse; R06.02 Shortness of breath; R42 Dizziness and giddiness
CPT/HCPCS: 78452; 93017; 93306; A9502; J2785

== ENCOUNTER 2022-08-22 09:42 | Emergency (ER) | payer MEDICARE, SELFPAY ==
--- NOTE | 2022-08-22 09:52 | EXP.UTC ---
Discharge Plan Disposition Patient Disposition: Home, Self-Care Condition: Good Prescriptions Prescriptions: New azithromycin [Zithromax] 250 mg tablet 250 mg PO UD DOSE PK Qty: 6 0RF Rx Instructions: Take two (2) tablets today, then one (1) tablet days #2 thru #5 benzonatate [benzonatate] 100 mg capsule 100 mg PO TIDP PRN (Reason: Cough) Qty: 30 0RF methylprednisolone 4 mg Tablets,Dose Pack 4 mg PO DIRECTED Qty: 21 0RF No Action lisinopril-hydrochlorothiazide 10-12.5 mg tablet 1 tab PO DAILY ondansetron HCl 4 mg tablet 4 mg PO Q8H PRN cholecalciferol (vitamin D3) 50 mcg (2,000 unit) capsule 50 mcg PO DAILY pantoprazole 40 mg tablet,delayed release (DR/EC) 40 mg PO DAILY budesonide-formoterol [Symbicort] 80-4.5 mcg/actuation HFA aerosol inhaler 1 puff IH BID fluticasone propionate 120 SPR/BOT bottle 2 spr NS DAILY Qty: 1 0RF Rx Instructions: each nostril Referrals Follow up/Referrals: Pravin Olson MD [Primary Care Provider] - See instructions Activity Restrictions/Add. Instructions Additional Instructions/Restrictions: Drink plenty of fluids. Take tylenol or ibuprofen for pain or fever. Take the medications as directed. Follow up with your regular doctor. GO TO THE ER FOR ANY WORSENING SYMPTOMS Clinical Impressions Clinical Impression: Sinusitis Instructions Patient Instructions: DI for Sinusitis, Sinusitis Discharge ED Provider: Cheng Rodriguez [facility] [place] HPI General Stated complaint: congestion, cough, h/a, body aches Time Seen by Provider: 08/22/22 09:50 History of Present Illness Provider Complaint: She states that for the past 1 week she has had sinus congestion, sinus pressure, bilateral ear pain. She denies any fever. She refuses any covid-19 or viral testing. Related Data Home Medications Medication Instructions Recorded Confirmed lisinopril 10 1 tab PO DAILY 09/13/19 05/14/22 mg-hydrochlorothiazide 12.5 mg tablet budesonide-formoterol HFA 80 1 puff inhalation BID 04/02/22 05/14/22 mcg-4.5 mcg/actuation aerosol inhaler (Symbicort) cholecalciferol (vitamin D3) 50 50 mcg PO DAILY 04/02/22 05/14/22 mcg (2,000 unit) capsule ondansetron HCl 4 mg tablet 4 mg PO Q8H PRN 04/02/22 05/14/22 pantoprazole 40 mg tablet,delayed 40 mg PO DAILY 04/02/22 05/14/22 release Previous Rx's Medication Instructions Recorded fluticasone propionate 50 2 spr intranasal DAILY ##1 08/13/18 mcg/actuation nasal spray,suspension azithromycin 250 mg tablet 250 mg PO UD DOSE PK #6 tabs 08/22/22 (Zithromax) benzonatate 100 mg capsule 100 mg PO TIDP PRN Cough #30 caps 08/22/22 methylprednisolone 4 mg tablets in 4 mg PO DIRECTED #21 tabs 08/22/22 a dose pack Allergies Allergy/AdvReac Type Severity Reaction Status Date / Time cephalexin [CEPHALEXIN] Allergy Unknown Verified 08/22/22 09:58 Penicillins [PENICILLINS] Allergy Unknown Verified 08/22/22 09:58 strawberry Allergy Unknown I-HIVES Verified 08/22/22 09:58 [From STRAWBERRIES (FOOD/DRUG)] wheat [WHEAT] Allergy Unknown SNEEZING Verified 08/22/22 09:58 wool [WOOL] Allergy Unknown I-RASH Verified 08/22/22 09:58 TOMATOES (FOOD) Allergy Intermediate I-RASH Uncoded 11/01/19 13:36 From STRAWBERRIES (FOOD/DRUG) Allergy Unknown I-HIVES Uncoded 11/01/19 13:36 PEANUTS (FOOD) Allergy Unknown SWELLING Uncoded 11/01/19 13:36 PFSH PFS Social History Smoking Status: Never smoker alcohol intake: never current occupational status: employed Travel in the last 8 weeks: Inside the [place] ROS Obtained: Yes All systems reviewed & no additional complaints except as documented Constitutional Constitutional: Reports chills and Reports fever(s) Eyes Eyes: Denies eye discharge ENT Ears, Nose, Mouth, and Throat: Reports as per HPI Cardiovascular Cardiovascular: Denies chest pain Respirat
[2022-08-22 09:56] VITALS: BP 132/81; PULSE 98; RESP 16; TEMP 37.2; O2SAT 96; BMI 28.5
[2022-08-22 10:36] VITALS: BP 132/81; PULSE 98; RESP 16; TEMP 37.2
== END 2022-08-22 10:41 | disposition home or self-care (01) ==
PROVIDERS: Emergency Provider Nurse Practitioner Family; PCP Internal Medicine
DX: H92.03 Otalgia, bilateral (principal); R50.9 Fever, unspecified; M79.10 Myalgia, unspecified site; R51.9 Headache, unspecified; R05.9 Cough, unspecified; R11.0 Nausea; Z79.51 Long term (current) use of inhaled steroids; Z79.52 Long term (current) use of systemic steroids; Z79.899 Other long term (current) drug therapy; Z91.010 Allergy to peanuts; Z88.8 Allergy status to other drugs, medicaments and biological substances; Z91.018 Allergy to other foods; Z91.048 Other nonmedicinal substance allergy status
CPT/HCPCS: 99213; G0463

== ENCOUNTER 2022-09-26 14:24 | Emergency (ER) | payer MEDICARE, SELFPAY ==
[2022-09-26] VITALS (10 sets, daily range): BP systolic 97–136; BP diastolic 62–82; PULSE 74–97; RESP 14–18; TEMP 36.6; O2SAT 94–100; BMI 29.0
--- NOTE | 2022-09-26 14:50 | CT_ITS ---
PROCEDURE INFORMATION: Exam: CTA Head With Contrast, Venography Exam date and time: 09/26/2022 4:32 PM Age: 62 years old Clinical indication: Dizziness and giddiness; Additional info: Concern for CVA TECHNIQUE: Imaging protocol: Computed tomography angiography of the head with contrast. Exam focused on the veins. 3D rendering (Not supervised by radiologist): MIP and/or 3D reconstructed images were created by the technologist. Radiation optimization: All CT scans at this facility use at least one of these dose optimization techniques: automated exposure control; mA and/or kV adjustment per patient size (includes targeted exams where dose is matched to clinical indication); or iterative reconstruction. Contrast material: ISOVUE 370; Contrast volume: 100 ml; Contrast route: INTRAVENOUS (IV); COMPARISON: CT HEAD/BRAIN WO CON 09/26/2022 4:25 PM FINDINGS: Superior sagittal sinus: Patent. Straight sinus: Patent. Transverse sinuses: Patent. Left transverse sinus is hypoplastic Sigmoid sinuses: Patent. Internal jugular veins: Limited visualized internal jugular veins are patent. Brain: No definite mass, mass effect, or midline shift. Cerebral ventricles: No ventriculomegaly. Soft tissues: Unremarkable. IMPRESSION: No venous sinus thrombosis.
--- NOTE | 2022-09-26 14:50 | CT_ITS ---
PROCEDURE INFORMATION: Exam: CT Head Without Contrast Exam date and time: 09/26/2022 4:25 PM Age: 62 years old Clinical indication: Dizziness; Additional info: Concern for CVA TECHNIQUE: Imaging protocol: Computed tomography of the head without contrast. Radiation optimization: All CT scans at this facility use at least one of these dose optimization techniques: automated exposure control; mA and/or kV adjustment per patient size (includes targeted exams where dose is matched to clinical indication); or iterative reconstruction. COMPARISON: CT HEAD/BRAIN WO CON 08/26/2021 7:03 PM FINDINGS: Brain: There is no evidence of acute intracranial hemorrhage, extra-axial collection or locoregional mass effect. There are scattered hypodensities in the periventricular and subcortical white matter. The appearance is nonspecific, but most likely represents chronic small vessel disease in a person of this age Cerebral ventricles: The ventricles, sulci and cisterns are normal in size and configuration for patient's age. No hydrocephalus or midline structure shift Pituitary gland and sella: Sellar/parasellar structures, craniocervical junction and orbits are unremarkable Paranasal sinuses: Visualized sinuses are unremarkable. No fluid levels. Mastoid air cells: Visualized mastoid air cells are well aerated. Bones/joints: No calvarial fracture Soft tissues: Unremarkable. IMPRESSION: No acute intracranial abnormality. No calvarial fracture. If focal neurological symptoms persist brain MRI can be obtained for better evaluation
--- NOTE | 2022-09-26 14:50 | CT_ITS ---
PROCEDURE INFORMATION: Exam: CTA Neck With Contrast Exam date and time: 09/26/2022 4:32 PM Age: 62 years old Clinical indication: Dizziness and giddiness; Additional info: Concern for CVA TECHNIQUE: Imaging protocol: Computed tomographic angiography of the neck with contrast. 3D rendering (Not supervised by radiologist): MIP and/or 3D reconstructed images were created by the technologist. Radiation optimization: All CT scans at this facility use at least one of these dose optimization techniques: automated exposure control; mA and/or kV adjustment per patient size (includes targeted exams where dose is matched to clinical indication); or iterative reconstruction. Contrast material: ISOVUE 370; Contrast volume: 70 ml; Contrast route: INTRAVENOUS (IV); COMPARISON: CT CERVICAL SPINE WO CON 08/26/2021 7:06 PM FINDINGS: Right common carotid artery: No stenosis. No dissection or occlusion. Right internal carotid artery: No stenosis of the extracranial segment. No dissection or occlusion. Right external carotid artery: No occlusion or stenosis of the origin. Left common carotid artery: No stenosis. No dissection or occlusion. Left internal carotid artery: No stenosis of the extracranial segment. No dissection or occlusion. Left external carotid artery: No occlusion or stenosis of the origin. Right vertebral artery: No stenosis. No dissection or occlusion. Left vertebral artery: No stenosis. No dissection or occlusion. Thyroid: Subcentimeter right thyroid lobe nodule Soft tissues: Normal. No significant soft tissue swelling. Bones/joints: No acute fracture. IMPRESSION: No occlusion or dissection along the major cervical arteries. COMMENTS: Consistent with the [employer]'s Incidental Findings Committee white paper (J Am Sera Radiol 2015): In patients aged 35 years and older with an incidental thyroid nodule equal to or greater than 1.[address], MRI or extrathyroidal US, further evaluation with dedicated thyroid US is recommended for patients with normal life expectancy and without comorbidities. For smaller nodules without suspicious features, no further evaluation or follow up is recommended. REFERENCES: NASCET CRITERIA. The degree of stenosis in the cervical segment of the internal carotid artery is based on NASCET criteria. Normal is no stenosis. Mild is less than 50% stenosis. Moderate is 50-69% stenosis. Severe is 70% to 99% stenosis. Total occlusion is no detectable patent lumen.
--- NOTE | 2022-09-26 14:50 | XR_ITS ---
PROCEDURE INFORMATION: Exam: XR Chest Exam date and time: 09/26/2022 3:52 PM Age: 62 years old Clinical indication: Other: Tachycardia TECHNIQUE: Imaging protocol: Radiologic exam of the chest. Views: 1 view. COMPARISON: CR XR CHEST 2V 08/26/2021 7:14 PM FINDINGS: Lungs: No evidence of pneumonia or interstitial edema. Lungs are hypoaerated. Pleural spaces: Unremarkable. No pleural effusion. No pneumothorax. Heart/Mediastinum: Unremarkable. No cardiomegaly. Bones/joints: Unremarkable. IMPRESSION: No evidence of pneumonia or interstitial edema.
[2022-09-26 15:02] LABS: Basophils # 0.1 K/mm3 (0-0.2); Basophils % 1.6 % (0.1-2.0); Eosinophils # 0.2 K/mm3 (0.0-0.4); Eosinophils % 2.8 % (0.1-12.0); Hematocrit 45.7 % (37.0-47.0); Hemoglobin 14.8 g/dL (12.2-16.2); Lymphocytes # 1.8 K/mm3 (0.7-4.5); Lymphocytes % 28.9 % (10-50); Mean Corpuscular HGB Conc 32.4 g/dL (31.8-35.4); Mean Corpuscular Volume 95.7 fl (81-99); Mean Platelet Volume 7.7 fl (7.4-10.4); Monocytes # 0.4 K/mm3 (0.1-1.0); Monocytes % 6.2 % (1.7-9.3); Neutrophils # 3.8 K/mm3 (1.8-7.8); Neutrophils % 60.5 % (37.0-80.0); Platelet Count 309 K/mm3 (142-424); Red Blood Count 4.77 M/mm3 (4.20-5.40); Red Cell Distribution Width 13.9 % (11.5-17.5); White Blood Count 6.3 K/mm3 (4.8-10.8)
[2022-09-26 15:03] LABS: Chloride 102 mmol/L (98-107)
[2022-09-26 15:04] LABS: Potassium 3.3 mmoL/L (3.5-5.1); Sodium 140 mmol/L (136-145)
[2022-09-26 15:06] LABS: Alanine Aminotransferase 25 U/L (12-78); Aspartate Amino Transferase 32 U/L (14-36); Blood Urea Nitrogen 16 mg/dl (7-17); Estimated Glomerular Filt Rate 72 ml/min (>60); GFR (African American) 87 ML/MIN (>60)
[2022-09-26 15:07] LABS: Albumin Level 4.3 g/dl (3.5-5.0); Albumin/Globulin Ratio 1.7 (1.1-1.8); Alkaline Phosphatase 73 U/L (38-126); Anion Gap 11.3 mEq/L (5-15); Bilirubin,Total 0.5 mg/dl (0.2-1.3); Calcium 9.4 mg/dl (8.4-10.2); Carbon Dioxide 30 mmol/L (22.0-30.0); Globulin 2.6 g/dL (1.3-3.2); Glucose 106 mg/dl (74-100); Total Protein,Serum 6.9 g/dl (6.3-8.2)
[2022-09-26 15:12] LABS: C-Reactive Protein 1.7 mg/L (0-4)
[2022-09-26 15:28] LABS: Troponin I < 0.01 ng/ml (0.00-0.034)
[2022-09-26 16:27] LABS: Coronavirus 19, PCR Not Detected (NotDetected); Influenza A, PCR Not Detected (NotDetected); Influenza B, PCR Not Detected (NotDetected)
[2022-09-26 16:31] LABS: Microscopic, Urine URINE MICROSCOPIC (MICROSCOPIC)
[2022-09-26 16:50] LABS: Appearance,Urine CLEAR (Clear); Bilirubin,Urine Negative (Negative); Blood, Urine 1+ (Negative); Color,Urine YELLOW (Yellow); Glucose,Urine (UA) Negative (Negative); Ketones,Urine Negative (Negative); Leukocyte Esterase,Urine TRACE (Negative); Nitrate,Urine Negative (Negative); Protein,Urine Negative (Negative); Urobilinogen,Urine 0.2 EU/dl (0.2)
[2022-09-26 17:09] LABS: Bacteria,Urine 1+ /lpf; Mucus,Urine 1+ /lpf
--- NOTE | 2022-09-26 17:33 | PC.NURSE ---
ROUNDED ON PT AT THIS TIME, PT AWARE ED MD IS WITH EMERGENCY AT THIS TIME. PT V/U NO NEEDS AT THIS TIME.
[2022-09-26 18:33] LABS: Troponin I < 0.01 ng/ml (0.00-0.034)
--- NOTE | 2022-09-26 20:58 | HMH.EDGENADL ---
Discharge Plan Disposition Patient Disposition: Home, Self-Care Condition: Good Prescriptions Prescriptions: No Action lisinopril-hydrochlorothiazide 10-12.5 mg tablet 1 tab PO DAILY ondansetron HCl 4 mg tablet 4 mg PO Q8H PRN cholecalciferol (vitamin D3) 50 mcg (2,000 unit) capsule 50 mcg PO DAILY pantoprazole 40 mg tablet,delayed release (DR/EC) 40 mg PO DAILY budesonide-formoterol [Symbicort] 80-4.5 mcg/actuation HFA aerosol inhaler 1 puff IH BID fluticasone propionate 120 SPR/BOT bottle 2 spr NS DAILY Qty: 1 0RF Rx Instructions: each nostril azithromycin [Zithromax] 250 mg tablet 250 mg PO UD DOSE PK Qty: 6 0RF Rx Instructions: Take two (2) tablets today, then one (1) tablet days #2 thru #5 benzonatate [benzonatate] 100 mg capsule 100 mg PO TIDP PRN (Reason: Cough) Qty: 30 0RF methylprednisolone 4 mg Tablets,Dose Pack 4 mg PO DIRECTED Qty: 21 0RF Referrals Follow up/Referrals: Pravin Olson MD [Primary Care Provider] - See instructions Clinical Impressions Clinical Impression: Acute viral syndrome Discharge ED Provider: Michael Sweeney General Adult HPI General Stated complaint: Numbness in face Time Seen by Provider: 09/26/22 14:25 History of Present Illness HPI narrative: Patient is a 62-year-old female who presents with concern for weakness and concern for numbness on the right side of her face. She states that she called her primary care physician who recommended that she come in for evaluation due to the numbness. She says that she has been feeling more weak than normal. Maybe has been feeling little bit feverish but has not had an actual fever. She has had a cough. She says that she was exposed to her granddaughter's who had RSV recently. She says that she has this numbness over the right side of her face that is started over the last day. She locates it just around the right side of her mouth. She denies any weakness. Denies any facial droop. Denies any dysarthria. Denies any difficulty walking. Denies any vision changes. Related Data Home Medications Medication Instructions Recorded Confirmed lisinopril 10 1 tab PO DAILY 09/13/19 05/14/22 mg-hydrochlorothiazide 12.5 mg tablet budesonide-formoterol HFA 80 1 puff inhalation BID 04/02/22 05/14/22 mcg-4.5 mcg/actuation aerosol inhaler (Symbicort) cholecalciferol (vitamin D3) 50 50 mcg PO DAILY 04/02/22 05/14/22 mcg (2,000 unit) capsule ondansetron HCl 4 mg tablet 4 mg PO Q8H PRN 04/02/22 05/14/22 pantoprazole 40 mg tablet,delayed 40 mg PO DAILY 04/02/22 05/14/22 release Previous Rx's Medication Instructions Recorded fluticasone propionate 50 2 spr intranasal DAILY ##1 08/13/18 mcg/actuation nasal spray,suspension azithromycin 250 mg tablet 250 mg PO UD DOSE PK #6 tabs 08/22/22 (Zithromax) benzonatate 100 mg capsule 100 mg PO TIDP PRN Cough #30 caps 08/22/22 methylprednisolone 4 mg tablets in 4 mg PO DIRECTED #21 tabs 08/22/22 a dose pack Allergies Allergy/AdvReac Type Severity Reaction Status Date / Time cephalexin [CEPHALEXIN] Allergy Unknown Verified 08/22/22 09:58 Penicillins [PENICILLINS] Allergy Unknown Verified 08/22/22 09:58 strawberry Allergy Unknown I-HIVES Verified 08/22/22 09:58 [From STRAWBERRIES (FOOD/DRUG)] wheat [WHEAT] Allergy Unknown SNEEZING Verified 08/22/22 09:58 wool [WOOL] Allergy Unknown I-RASH Verified 08/22/22 09:58 TOMATOES (FOOD) Allergy Intermediate I-RASH Uncoded 11/01/19 13:36 From STRAWBERRIES (FOOD/DRUG) Allergy Unknown I-HIVES Uncoded 11/01/19 13:36 PEANUTS (FOOD) Allergy Unknown SWELLING Uncoded 11/01/19 13:36 PFSH PFSH Social History Smoking Status: Never smoker alcohol intake: never current occupational status: employed Travel in the last 8 weeks: Inside the [place] ROS Obtained: Yes All systems reviewed
== END 2022-09-26 18:38 | disposition home or self-care (01) ==
PROVIDERS: Emergency Provider Student in an Organized Health Care Education/Training Program; PCP Internal Medicine
DX: R20.0 Anesthesia of skin (principal); Z88.0 Allergy status to penicillin; Z88.1 Allergy status to other antibiotic agents; B34.9 Viral infection, unspecified; R53.1 Weakness; Z20.828 Contact with and (suspected) exposure to other viral communicable diseases
CPT/HCPCS: 36415; 70450; 70496; 70498; 71045; 80053; 81001; 84484; 85025; 86140; 96365; 99285; C9803; Q9967; U0003; U0005

== ENCOUNTER → 2022-11-11 11:40 | Outpatient (CLI) | payer MEDICARE, SELFPAY ==
[2022-11-11 13:10] LABS: Basophils # 0.1 K/mm3 (0-0.2); Eosinophils # 0.2 K/mm3 (0.0-0.4); Eosinophils % 3.4 % (0.1-12.0); Hematocrit 44.1 % (37.0-47.0); Hemoglobin 14.4 g/dL (12.2-16.2); Lymphocytes # 1.7 K/mm3 (0.7-4.5); Lymphocytes % 29.5 % (10-50); Mean Corpuscular HGB Conc 32.7 g/dL (31.8-35.4); Mean Corpuscular Volume 94.6 fl (81-99); Mean Platelet Volume 8.4 fl (7.4-10.4); Monocytes # 0.4 K/mm3 (0.1-1.0); Monocytes % 6.4 % (1.7-9.3); Neutrophils # 3.5 K/mm3 (1.8-7.8); Neutrophils % 59.7 % (37.0-80.0); Platelet Count 316 K/mm3 (142-424); Red Blood Count 4.66 M/mm3 (4.20-5.40); Red Cell Distribution Width 13.1 % (11.5-17.5); White Blood Count 5.8 K/mm3 (4.8-10.8)
[2022-11-11 13:12] LABS: Chloride 102 mmol/L (98-107); Sodium 139 mmol/L (136-145)
[2022-11-11 13:13] LABS: Potassium 4.5 mmoL/L (3.5-5.1)
[2022-11-11 13:15] LABS: Alanine Aminotransferase 18 U/L (12-78); Albumin Level 4.1 g/dl (3.5-5.0); Alkaline Phosphatase 71 U/L (38-126); Anion Gap 11.5 mEq/L (5-15); Aspartate Amino Transferase 23 U/L (14-36); Bilirubin,Total 0.5 mg/dl (0.2-1.3); Blood Urea Nitrogen 19 mg/dl (7-17); Calcium 8.9 mg/dl (8.4-10.2); Carbon Dioxide 30 mmol/L (22.0-30.0); Chol/HDL Ratio 4.6 (1-3.5); Cholesterol 225 mg/dl (140-200); Estimated Glomerular Filt Rate 72 ml/min (>60); GFR (African American) 87 ML/MIN (>60); Globulin 2.1 g/dL (1.3-3.2); Glucose 92 mg/dl (74-100); HDL Cholesterol 49 mg/dl (40-60); Total Protein,Serum 6.2 g/dl (6.3-8.2); Triglycerides 215 mg/dl (30-150); VLDL Cholesterol 43 mg/dL (0-40)
== END ==
PROVIDERS: PCP Internal Medicine; Visit Provider Internal Medicine
DX: I11.0 Hypertensive heart disease with heart failure (principal); I50.30 Unspecified diastolic (congestive) heart failure; E78.5 Hyperlipidemia, unspecified; J45.998 Other asthma
CPT/HCPCS: 80053; 80061; 85025

== ENCOUNTER → 2022-12-22 11:01 | Outpatient (CLI) | payer MEDICARE, SELFPAY ==
--- NOTE | 2022-12-22 11:04 | MM_ITS ---
PROCEDURE INFORMATION: Exam: MG Bilateral Screening 3D Mammography Exam date and time: 12/22/2022 11:10 AM Age: 62 years old Clinical indication: Screening examination TECHNIQUE: Imaging protocol: Bilateral Screening tomosynthesis and 2D mammography including computer-aided detection (CAD) when performed. COMPARISON: 1. MG DMSB DIG MAMM-SCREEN STEPHANI 01/30/2016 9:42 AM 2. MG DIGITAL MAMM-SCREEN BILATE 03/22/2012 2:19 PM FINDINGS: MAMMOGRAPHY: Breast composition: The breasts are almost entirely fatty. Mass: None. Architectural distortion: None. Calcifications: No suspicious calcifications. Asymmetric density: None. Skin thickening: None. Axillary adenopathy: None. IMPRESSION: No mammographic evidence of malignancy. Annual screening is recommended unless otherwise clinically indicated. ASSESSMENT: BI-RADS Category 1: Negative
== END ==
PROVIDERS: PCP Internal Medicine; Visit Provider Internal Medicine
DX: Z12.31 Encounter for screening mammogram for malignant neoplasm of breast (principal)
CPT/HCPCS: 77063; 77067

== ENCOUNTER 2023-04-21 11:17 | Emergency (ER) | payer MEDICARE, SELFPAY ==
[2023-04-21 11:18] VITALS: BP 127/77; PULSE 75; RESP 18; TEMP 36.8; O2SAT 99; BMI 27.1
--- NOTE | 2023-04-21 11:33 | XR_ITS ---
FINAL REPORT CLINICAL HISTORY: injury twisted left wrist FINDINGS: LEFT WRIST Three views demonstrate no acute fracture or dislocation. The bones are osteopenic. The visualized joint spaces are normally aligned. The soft tissues are unremarkable. IMPRESSION: No acute bony abnormality. Reviewed, Interpreted and Dictated by Winsome Rocha MD Transcribed by Hanane Neri Authenticated and [facility]
--- NOTE | 2023-04-21 11:33 | XR_ITS ---
FINAL REPORT CLINICAL HISTORY: injury twisted left hand FINDINGS: LEFT HAND Three views demonstrate no acute fracture or dislocation. The bones are osteopenic. There are mild degenerative changes of the 1st carpometacarpal joint. The soft tissues are unremarkable. IMPRESSION: No acute process. Reviewed, Interpreted and Dictated by Winsome Rocha MD Transcribed by Hanane Neri Authenticated and [facility]
--- NOTE | 2023-04-21 11:33 | XR_ITS ---
FINAL REPORT CLINICAL HISTORY: injury twisted left forearm FINDINGS: 2 views of the left forearm were obtained. There is no acute fracture or dislocation. The joints are intact. There are no soft tissue abnormalities. IMPRESSION: No acute process. Reviewed, Interpreted and Dictated by Winsome Rocha MD Transcribed by Hanane Neri Authenticated and [facility]
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
[2023-04-21 12:38] VITALS: BP 127/77; PULSE 75; RESP 18; TEMP 36.8; O2SAT 99
== END 2023-04-21 12:39 | disposition home or self-care (01) ==
PROVIDERS: Emergency Provider Nurse Practitioner Family; PCP Internal Medicine
DX: S63.502A Unspecified sprain of left wrist, initial encounter (principal); Y04.8XXA Assault by other bodily force, initial encounter
CPT/HCPCS: 73090; 73110; 73130; 99212; 99214; G0463

== ENCOUNTER → 2023-05-12 12:30 | Outpatient (CLI) | payer MEDICARE, SELFPAY ==
[2023-05-12 13:50] LABS: Alanine Aminotransferase 15 U/L (12-78); Albumin Level 4.2 g/dl (3.5-5.0); Albumin/Globulin Ratio 1.8 (1.1-1.8); Alkaline Phosphatase 76 U/L (38-126); Anion Gap 13.2 mEq/L (5-15); Aspartate Amino Transferase 23 U/L (14-36); Bilirubin,Total 0.6 mg/dl (0.2-1.3); Blood Urea Nitrogen 14 mg/dl (7-17); Calcium 8.5 mg/dl (8.4-10.2); Carbon Dioxide 31 mmol/L (22.0-30.0); Chloride 100 mmol/L (98-107); Chol/HDL Ratio 3.3 (1-3.5); Cholesterol 231 mg/dl (140-200); Estimated Glomerular Filt Rate 84 ml/min (>60); GFR (African American) 102 ML/MIN (>60); Globulin 2.3 g/dL (1.3-3.2); Glucose 80 mg/dl (74-100); HDL Cholesterol 70 mg/dl (40-60); Potassium 4.2 mmoL/L (3.5-5.1); Sodium 140 mmol/L (136-145); Total Protein,Serum 6.5 g/dl (6.3-8.2); Triglycerides 131 mg/dl (30-150); VLDL Cholesterol 26 mg/dL (0-40)
[2023-05-12 14:01] LABS: Direct LDL Cholesterol 120.84 mg/dL (100-129)
== END ==
PROVIDERS: PCP Internal Medicine; Visit Provider Internal Medicine
DX: I10 Essential (primary) hypertension (principal); E78.5 Hyperlipidemia, unspecified
CPT/HCPCS: 80053; 80061

== ENCOUNTER 2023-06-27 12:50 | Emergency (ER) | payer MEDICARE, SELFPAY ==
[2023-06-27 13:10] VITALS: BP 116/72; PULSE 68; RESP 19; TEMP 36.8; O2SAT 98; BMI 26.2
--- NOTE | 2023-06-27 13:12 | EXP.UTC ---
Discharge Plan Disposition Patient Disposition: Home, Self-Care Condition: Good Prescriptions Prescriptions: New clindamycin HCl 300 mg capsule 300 mg PO Q8H Qty: 30 0RF ciprofloxacin HCl [Cipro] 500 mg tablet 500 mg PO BID 10 Days Qty: 20 0RF mupirocin 2 % ointment 1 applic topical TID 7 Days Qty: 15 0RF ondansetron 4 mg Tablet,Disintegrating 4 mg PO Q8H PRN (Reason: Nausea) Qty: 12 0RF No Action lisinopril-hydrochlorothiazide 10-12.5 mg tablet 1 tab PO DAILY ondansetron HCl 4 mg tablet 4 mg PO Q8H PRN cholecalciferol (vitamin D3) 50 mcg (2,000 unit) capsule 50 mcg PO DAILY pantoprazole 40 mg tablet,delayed release (DR/EC) 40 mg PO DAILY budesonide-formoterol [Symbicort] 80-4.5 mcg/actuation HFA aerosol inhaler 1 puff IH BID fluticasone propionate 120 SPR/BOT bottle 2 spr NS DAILY Qty: 1 0RF Rx Instructions: each nostril azithromycin [Zithromax] 250 mg tablet 250 mg PO UD DOSE PK Qty: 6 0RF Rx Instructions: Take two (2) tablets today, then one (1) tablet days #2 thru #5 benzonatate [benzonatate] 100 mg capsule 100 mg PO TIDP PRN (Reason: Cough) Qty: 30 0RF methylprednisolone 4 mg Tablets,Dose Pack 4 mg PO DIRECTED Qty: 21 0RF Referrals Follow up/Referrals: Pravin Olson MD [Primary Care Provider] - See instructions Activity Restrictions/Add. Instructions Additional Instructions/Restrictions: Keep the wounds clean and dry. Watch the wounds for signs of infection, such as redness, swelling, drainage, fever. etc. Take tylenol or ibuprofen for pain. Follow up with your regular doctor. GO TO THE ER FOR ANY WORSENING SYMPTOMS OR CONCERNS. Clinical Impressions Clinical Impression: Cat bite of right upper arm, Need for Tdap vaccination Instructions Patient Instructions: DI for Animal Bites, Tetanus, Diphtheria, Pertussis (Tdap) Vaccine, DI for Cat Bite Discharge ED Provider: Cheng Rodriguez [facility] General Stated complaint: [id number] cat scratch and bite Time Seen by Provider: 06/27/23 13:12 History of Present Illness Provider Complaint: She was bit by her house cat on her right upper arm yesterday. Her tetanus immunization is not up to date. The cat's shots are up to date. Related Data Home Medications Medication Instructions Recorded Confirmed lisinopril 10 1 tab PO DAILY 09/13/19 05/14/22 mg-hydrochlorothiazide 12.5 mg tablet budesonide-formoterol HFA 80 1 puff inhalation BID 04/02/22 05/14/22 mcg-4.5 mcg/actuation aerosol inhaler (Symbicort) cholecalciferol (vitamin D3) 50 50 mcg PO DAILY 04/02/22 05/14/22 mcg (2,000 unit) capsule ondansetron HCl 4 mg tablet 4 mg PO Q8H PRN 04/02/22 05/14/22 pantoprazole 40 mg tablet,delayed 40 mg PO DAILY 04/02/22 05/14/22 release Previous Rx's Medication Instructions Recorded fluticasone propionate 50 2 spr intranasal DAILY ##1 08/13/18 mcg/actuation nasal spray,suspension azithromycin 250 mg tablet 250 mg PO UD DOSE PK #6 tabs 08/22/22 (Zithromax) benzonatate 100 mg capsule 100 mg PO TIDP PRN Cough #30 caps 08/22/22 methylprednisolone 4 mg tablets in 4 mg PO DIRECTED #21 tabs 08/22/22 a dose pack ciprofloxacin HCl 500 mg tablet 500 mg PO BID 10 days #20 tabs 06/27/23 (Cipro) clindamycin HCl 300 mg capsule 300 mg PO Q8H #30 caps 06/27/23 mupirocin 2 % topical ointment 1 applic topical TID 7 days #15 06/27/23 grams ondansetron 4 mg disintegrating 4 mg PO Q8H PRN Nausea #12 tabs 06/27/23 tablet Allergies Allergy/AdvReac Type Severity Reaction Status Date / Time cephalexin [CEPHALEXIN] Allergy Unknown Verified 08/22/22 09:58 Penicillins [PENICILLINS] Allergy Unknown Verified 08/22/22 09:58 strawberry Allergy Unknown I-HIVES Verified 08/22/22 09:58 [From STRAWBERRIES (FOOD/DRUG)] wheat [WHEAT] Allergy Unknown SNEEZING Verified 08/22/22 09:58 wool [WOOL] Allergy Unknown I-RASH Verified 08/22/22 09
[2023-06-27 13:47] VITALS: BP 116/72; PULSE 68; RESP 19; TEMP 36.8; O2SAT 98
== END 2023-06-27 13:49 | disposition home or self-care (01) ==
PROVIDERS: Emergency Provider Nurse Practitioner Family; PCP Internal Medicine
DX: S41.141A Puncture wound with foreign body of right upper arm, initial encounter (principal); Z23 Encounter for immunization; W55.01XA Bitten by cat, initial encounter
CPT/HCPCS: 90471; 90715; 96372; 99212; 99214; G0463

== ENCOUNTER 2023-11-17 13:09 | Outpatient (CLI) | payer MEDICARE, SELFPAY ==
[2023-11-17 16:40] LABS: Alanine Aminotransferase 15 U/L (12-78); Albumin Level 3.5 g/dl (3.5-5.0); Albumin/Globulin Ratio 1.5 (1.1-1.8); Alkaline Phosphatase 81 U/L (38-126); Anion Gap 8.1 mEq/L (5-15); Aspartate Amino Transferase 23 U/L (14-36); Bilirubin,Total 0.4 mg/dl (0.2-1.3); Blood Urea Nitrogen 19 mg/dl (7-17); Carbon Dioxide 31 mmol/L (22.0-30.0); Chloride 102 mmol/L (98-107); Chol/HDL Ratio 4.9 (1-3.5); Cholesterol 241 mg/dl (140-200); Estimated Glomerular Filt Rate 84 ml/min (>60); GFR (African American) 102 ML/MIN (>60); Globulin 2.4 g/dL (1.3-3.2); Glucose 77 mg/dl (74-100); HDL Cholesterol 49 mg/dl (40-60); Potassium 4.1 mmoL/L (3.5-5.1); Sodium 137 mmol/L (136-145); Total Protein,Serum 5.9 g/dl (6.3-8.2); Triglycerides 152 mg/dl (30-150); VLDL Cholesterol 30 mg/dL (0-40)
[2023-11-17 16:50] LABS: Direct LDL Cholesterol 146.59 mg/dL (100-129)
== END 2023-11-17 23:59 ==
LOC: LAB.DROPOF 13:10
PROVIDERS: PCP Internal Medicine; Visit Provider Internal Medicine
DX: I10 Essential (primary) hypertension (principal); E78.5 Hyperlipidemia, unspecified
CPT/HCPCS: 80053; 80061

== ENCOUNTER 2024-04-30 11:00 | Emergency (ER) | payer MEDICARE, SELFPAY ==
--- NOTE | 2024-04-30 11:07 | XR_ITS ---
PROCEDURE INFORMATION: Exam: XR Right Foot Exam date and time: 04/30/2024 11:02 AM Age: 63 years old Clinical indication: Pain; Difficulty in walking and limp; Foot; Right TECHNIQUE: Imaging protocol: Radiologic exam of the right foot. Views: 3 or more views. COMPARISON: CR XR FOOT RT MIN 3V 09/04/2019 6:08 PM FINDINGS: Bones/joints: Degenerative changes in the tarsometatarsal joints. There is no evidence of acute fracture.There is no evidence of malalignment or dislocation. Soft tissues: Normal. IMPRESSION: There is no evidence of acute fracture.There is no evidence of malalignment or dislocation.
[2024-04-30 11:35] VITALS: BP 156/91; PULSE 63; RESP 18; TEMP 36.6; O2SAT 98; BMI 26.9
--- NOTE | 2024-04-30 11:35 | ED_ITS ---
Discharge Plan Disposition Patient Disposition: Home, Self-Care Condition: Good Prescriptions Prescriptions: No Action lisinopril-hydrochlorothiazide 10-12.5 mg tablet 1 tab PO DAILY cholecalciferol (vitamin D3) 50 mcg (2,000 unit) capsule 50 mcg PO DAILY pantoprazole 40 mg tablet,delayed release (DR/EC) 40 mg PO DAILY budesonide-formoterol [Symbicort] 80-4.5 mcg/actuation HFA aerosol inhaler 1 puff IH BID fluticasone propionate 120 SPR/BOT bottle 2 spr NS DAILY Qty: 1 0RF Rx Instructions: each nostril meloxicam 7.5 mg tablet 7.5 mg PO DAILY Patient Comments: TAKE 1 TABLET BY MOUTH TWICE DAILY WITH FOOD NEEDED FOR PAIN/INFLAMMATION Referrals Follow up/Referrals: Pravin Olson MD [Primary Care Provider] - See instructions Elina Arellano DPM [Staff Physician] - See instructions Activity Restrictions/Add. Instructions Additional Instructions/Restrictions: Rest the extremity, Elevate the extremity as tolerated while you are resting. Take ibuprofen for pain (if you can take this). Follow up with Dr. Arellano (podiatry). I put in a referral but you need to call her office and schedule an appointment. Follow up with your regular doctor. GO TO THE ER FOR ANY WORSENING SYMPTOMS Clinical Impressions Clinical Impression: Pain in right foot Instructions Patient Instructions: DI for Foot Pain, How to Use a Walking Boot Discharge ED Provider: Cheng Rodriguez [facility] General Stated complaint: Right foot pain difficulty weight bearing Time Seen by Provider: 04/30/24 11:35 History of Present Illness Provider Complaint: She states that around 1 month ago she felt a pop in her right foot and she has had pain and swelling of the foot since then. She denies injuring it when she felt the pop. Related Data Home Medications Medication Instructions Recorded Confirmed lisinopril 10 1 tab PO DAILY 09/13/19 04/30/24 mg-hydrochlorothiazide 12.5 mg tablet budesonide-formoterol HFA 80 1 puff inhalation BID 04/02/22 05/14/22 mcg-4.5 mcg/actuation aerosol inhaler (Symbicort) cholecalciferol (vitamin D3) 50 50 mcg PO DAILY 05/19/22 06/16/24 mcg (2,000 unit) capsule pantoprazole 40 mg tablet,delayed 40 mg PO DAILY 04/02/22 04/30/24 release meloxicam 7.5 mg tablet 7.5 mg PO DAILY 04/30/24 04/30/24 Previous Rx's Medication Instructions Recorded fluticasone propionate 50 2 spr intranasal DAILY ##1 08/13/18 mcg/actuation nasal spray,suspension Allergies Allergy/AdvReac Type Severity Reaction Status Date / Time cephalexin [CEPHALEXIN] Allergy Unknown Verified 08/22/22 09:58 Penicillins [PENICILLINS] Allergy Unknown Verified 08/22/22 09:58 strawberry Allergy Unknown I-HIVES Verified 08/22/22 09:58 [From STRAWBERRIES (FOOD/DRUG)] wheat [WHEAT] Allergy Unknown SNEEZING Verified 08/22/22 09:58 wool [WOOL] Allergy Unknown I-RASH Verified 08/22/22 09:58 TOMATOES (FOOD) Allergy Intermediate I-RASH Uncoded 11/01/19 13:36 From STRAWBERRIES (FOOD/DRUG) Allergy Unknown I-HIVES Uncoded 11/01/19 13:36 PEANUTS (FOOD) Allergy Unknown SWELLING Uncoded 11/01/19 13:36 PFSH [facility] Disclaimer: The information contained in this section may have been updated after the patient was seen, as this information can be updated by other users. Medical History (Updated 04/30/24 @ 12:40 by Cheng Rodriguez APRN) Asthma Hyperlipidemia Hypertension Surgical History (Updated 04/30/24 @ 11:47 by Dalia Timmons RN) History of tubal ligation History of hysterectomy Social History Smoking Status: Never smoker alcohol intake: never current occupational status: employed Travel in the last 8 weeks: Inside the [place] ROS Obtained: Yes All systems reviewed & no additional complaints except as documented Constitutional Constitutional: Denies chills and Denies fever(s) Eyes Eyes: Denies eye discharge ENT Ears, Nose, Mouth, and Throat: Denies dizziness, Denies otalgia and Denies sore throat Cardiovascular Cardiovascular: Denies chest pain Respiratory Respiratory: Denies shortness of breath, Denies chest congestion, Denies cough, Denies stridor and Denies wheezing Gastrointestinal Gastrointestingal: Denies nausea or vomiting Musculoskeletal Musculoskeletal: Reports as per HPI Integumentary/Breasts Skin/Breast: Denies rash Neurologic Neurologic: Denies dizziness and Denies paresthesias Allergic/Immunologic Allergic/Immunologic: Denies wheezing Physical Exam General General appearance: alert and in no apparent distress Head Head exam: atraumatic, normocephalic and normal inspection Eye Eye exam: Present normal appearance, PERRL and EOMI ENT ENT exam: Present normal exam, normal oropharynx, mucous membranes moist, TM's normal bilaterally and normal external ear exam Neck Neck exam: Present normal inspection, full ROM and trachea midline; Absent meningismus or lymphadenopathy Chest Chest inspection: Present normal inspection and symmetric chest wall rise; Absent tenderness Respiratory Respiratory exam: Present normal lung sounds bilaterally; Absent respiratory distress Cardiovascular Cardiovascular exam: Present regular rate and normal rhythm; Absent JVD Abdominal Exam Abdominal exam: Present soft and normal bowel sounds; Absent distention, tenderness or guarding Extremities Exam Extremities exam: Present normal capillary refill; Absent calf tenderness Expanded Lower Extremity Exam Right: Knee exam: Present normal inspection and full ROM; Absent tenderness Lower leg exam: Present normal inspection, full ROM and Achilles tendon intact; Absent tenderness or Homans' sign Ankle exam: Present normal inspection and full ROM; Absent tenderness, tenderness over talofibular lig or anterior draw sign Foot/toe exam: Present tenderness, swelling and tenderness at base of 5th metatarsal; Absent full ROM, abrasion, laceration, ecchymosis, deformity, crepitus, dislocation, erythema, amputation, puncture wound, foreign body, calcaneal tenderness, nail avulsion or subungual hematoma Neurovascular/Tendon exam: Present normal capillary refill, normal 2-point discrimination and normal fine/light touch; Absent pulse deficit, motor deficit, sensory deficit, tendon deficit, extremity cold to touch or pallor Gait: observed and limited by pain Back Exam Back exam: Present normal inspection; Absent tenderness Neurological Exam Neurological exam: Present alert and oriented X3 Psychiatric Psychiatric exam: Present normal affect and normal mood Skin Skin exam: Present warm, dry, intact and normal color Lymphatic Lymphatic Findings: no adenopathy Medical Decision Making Medical Records Medical records reviewed: No I reviewed the patient's medical records. Michael Inquiry Pt receiving controlled substance: No Orders (Tests/Meds): ORDERS Category Date Time Status Foot XR right minimum 3 views [XR foot RT min 3V] Stat Exams 04/30/24 11:07 Taken Radiology Data #1: Image(s): Foot/Toes Image Reviewed: Yes I reviewed the patient's radiology image and Yes I have reviewed radiologist's interpretation Preliminary Findings: No Fracture Seen Accession No. : [id number] Patient Name / ID : POONAM VASQUEZ / [id number] Exam Date : 04/30/2024 11:02:37 ( Final ) Study Comment : Sex / Age : F / 63Y Creator : AMANDEEP MAYA MD Dictator : Reimbursement Manager : Sales Advisor : AMANDEEP MAYA MD Approver2 : Report Date : 04/30/2024 12:26:53 My Comment : PROCEDURE INFORMATION: Exam: XR Right Foot Exam date and time: 04/30/2024 11:02 AM Age: 63 years old Clinical indication: Pain; Difficulty in walking and limp; Foot; Right TECHNIQUE: Imaging protocol: Radiologic exam of the right foot. Views: 3 or more views. COMPARISON: CR XR FOOT RT MIN 3V 09/04/2019 6:08 PM FINDINGS: Bones/joints: Degenerative changes in the tarsometatarsal joints. There is no evidence of acute fracture.There is no evidence of malalignment or dislocation. Soft tissues: Normal. IMPRESSION: There is no evidence of acute fracture.There is no evidence of malalignment or dislocation. Procedures Risk/Benefits of Procedure(s) Were Explained: Yes Orthopedic Splinting/Casting Injury #1: Side: right Lower Extremity Injury Location: foot Lower Extremity Immobilizer: boot orthosis and applied by nurse/dr hadley Post Cast/Splinting Neuro Status: intact and no change Post Cast/Splinting Vasc Status: intact and no change
[2024-04-30 12:42] VITALS: BP 156/91; PULSE 63; RESP 18; TEMP 36.6; O2SAT 98
== END 2024-04-30 12:43 | disposition home or self-care (01) ==
PROVIDERS: Emergency Provider Nurse Practitioner Family; PCP Internal Medicine
DX: M79.671 Pain in right foot (principal)
CPT/HCPCS: 73630; 99212; 99213; G0463

== ENCOUNTER 2024-05-17 10:08 | Outpatient (CLI) | payer MEDICARE, SELFPAY ==
--- NOTE | 2024-05-17 10:13 | XR_ITS ---
FINAL REPORT CLINICAL HISTORY: Ongoing pain in right lateral foot COMPARISON: None FINDINGS: RIGHT FOOT: Three views of the right foot were obtained. There is no acute fracture or dislocation. Mild degenerative changes present. There is no soft tissue abnormality. IMPRESSION: Mild degenerative change, with no acute bony abnormality. Reviewed, Interpreted and Dictated by Arnaud Morales III, MD Transcribed by Gladys Puri Authenticated and [facility]
[2024-05-17 19:29] LABS: Alanine Aminotransferase 17 U/L (12-78); Albumin Level 4.3 g/dl (3.5-5.0); Albumin/Globulin Ratio 1.7 (1.1-1.8); Alkaline Phosphatase 80 U/L (38-126); Anion Gap 13.6 mEq/L (5-15); Aspartate Amino Transferase 27 U/L (14-36); Bilirubin,Total 0.7 mg/dl (0.2-1.3); Blood Urea Nitrogen 14 mg/dl (7-17); Calcium 9.3 mg/dl (8.4-10.2); Carbon Dioxide 31 mmol/L (22.0-30.0); Chloride 99 mmol/L (98-107); Chol/HDL Ratio 4.3 (1-3.5); Cholesterol 259 mg/dl (140-200); Estimated Glomerular Filt Rate 72 ml/min (>60); GFR (African American) 87 ML/MIN (>60); Globulin 2.6 g/dL (1.3-3.2); Glucose 68 mg/dl (74-100); HDL Cholesterol 60 mg/dl (40-60); Potassium 3.6 mmoL/L (3.5-5.1); Sodium 140 mmol/L (136-145); Total Protein,Serum 6.9 g/dl (6.3-8.2); Triglycerides 124 mg/dl (30-150); VLDL Cholesterol 25 mg/dL (0-40)
[2024-05-17 19:40] LABS: Direct LDL Cholesterol 158.98 mg/dL (100-129)
== END 2024-05-17 23:59 | disposition home or self-care (01) ==
LOC: RAD 10:10
PROVIDERS: PCP Internal Medicine; Visit Provider Internal Medicine
DX: E78.5 Hyperlipidemia, unspecified (principal); I10 Essential (primary) hypertension; M77.41 Metatarsalgia, right foot
CPT/HCPCS: 73630; 80053; 80061

== ENCOUNTER 2024-10-19 10:36 | Outpatient (CLI) | payer MEDICARE, SELFPAY ==
--- OUTSIDE RECORDS SUMMARY | 2024-10-19 10:39 | XMS_ITS | Encounter Summary ---
Author Organization Healthcare Address [address] [place] [address] Care Team Providers Care Placer Miner Name Role Phone Pravin Olson MD Primary Care Provider [phone] Encounter Details Date Type Department Care Team (Latest Contact Info) Description 12/25/2021 Travel Social History Tobacco Use Types Packs/Day Years Used Date Smoking Tobacco: Never Smokeless Tobacco: Never Comments Unknown Sex and Gender Information Value Date Recorded Sex Assigned at Not on file Legal Sex Female 7:32 PM EDT Gender Identity Not on file Sexual Orientation Not on file COVID-19 Exposure Response Date Recorded In the last month, have you been in contact with someone who was confirmed or suspected to have Coronavirus / COVID-19? Yes 12/25/2021 9:35 AM EST documented as of this encounter Plan of Treatment Not on file documented as of this encounter Visit Diagnoses Not on filedocumented in this encounter Additional Health Concerns Assessment Noted Time A fall risk assessment has been complete d for the patient 12/25/2021 9:46 AM EST documented as of this encounter Care Teams Placer Miner Relationship Specialty Start Date End Date Pravin Olson MD [address] [place] [address] PCP - General 05/29/21 documented as of this encounter
--- OUTSIDE RECORDS SUMMARY | 2024-10-19 10:39 | XMS_ITS | Encounter Summary ---
Author Organization Healthcare Address [address] [place] [address] Care Team Providers Care Freelance Interpreter/Translator Name Role Phone Pravin Olson MD Primary Care Provider [phone] Reason for Referral * Other Medical (Routine) - Closed Specialty Diagnoses / Procedures Referred By Geri oneill Referred To Contact Diagnoses Rotator cuff tendinitis, right Procedures Injection - Large Joint: R subacromial bursa Addison Nicholson MD [address] [address] Phone: tel: fax: Referral ID Status Reason Start Date Expiration Date Visits Re quested Visits Authorized [id number] Closed 12/25/2021 06/26/2023 1 1 Reason for Visit * Reason Comments Injections Encounter Details Date Type Department Care Team (Late st Contact Info) Description 12/25/2021 10:00 AM EST Office Visit [facility] [address], [address] [place] [id number] Addison Nicholson MD [address] [address] Rotator cuff tendinitis, right (Primary Dx) Social History Tobacco Use Types Packs/Day Years [...] AM EST documented as of this encounter Last Filed Vital Signs Vital Sign Reading Time Taken Comments Blood Pressure 122/81 12/25/2021 9:46 AM EST Pulse 52 12/25/2021 9:46 AM EST Temperature - - Respiratory Rate - - Oxygen Saturation - - Inhaled Oxygen Concentration - - Weight 77.1 kg (170 lb) 12/25/2021 9:46 AM EST Height 160 cm (5' 3 ) 12/25/2021 9:46 AM EST Body Mass Index 30.11 12/25/2021 9:46 AM EST documented in this encounter Miscellaneous Notes * Progress Notes - Addison Nicholson MD - 12/25/2021 10:00 AM ESTAssociated Order(s): Injection - Large Joint: R subacromial bursa History of present illness: Leslie Mix is a 61 y.o. female who returns for evaluation of her right shoulder. He has a previous history of rotator cuff repair over 5 years ago. She had a subacromial injection about 4 months ago that helped her significantly but she has recently started to have some increased pain again. Pain is primarily about the lateral aspect of the shoulder, worse with activity. He denies any new injuries. I have reviewed and updated the patient's past medical history, past surgical history, social history, and family history. This is located both in the patient's note and their intake form that has been scanned into the medical record for today's visit. 14 point review of systems was reviewed per signed intake sheet and is otherwise negative except asnoted above. Objective: Constitutional: Well developed, well nourished, no acute distress HEENT: mucous membranes moist, normocephalic atraumatic Psychologic: appropriate mood and affect Chest: bilateral chest elevations, symmetric Cardiovascular: pink extremities, peripheral perfusion intact Respiratory: no respiratory distress, nonlabored on room air Abdomen: soft, nontender Neurologic: orientation to person, place and time RIGHT SHOULDER EXAM There is no cervical tenderness and negative Spurling's. No obvious atrophy or deformity. No scapular dyskinesia. Patient has tenderness about the anterolateral shoulder. Active elevation is 170??, external rotation at the side 60??, internal rotation to T10. There is full passive range of motion. There is pain with elevation and resisted strength testing. There is pain with resisted external rotation. There is mild weakness to supraspinatus testing, no obvious weakness to external rotation. Lift-off test is normal. The patient has a painful arc of abduction and positive impingement signs. There is a negative speed's test and negative Yergason's test. There is no significant pain with cross-arm adduction. No signs of instability or apprehension. Distal neurovascular exam is normal. The patient has a warm and well-perfused upper extremity with capillary refill less than 2 seconds.Sensation is intact to light touch in terminal nerve distributions. The patient has no palpable epitrochlear lymphadenopathy. Imaging: X-Rays: Personally reviewed. There is no evidence of glenohumeral arthritis. Humeral head remains well centered. Procedure: Injection - Large Joint: R subacromial bursa Indications: pain Details: 22 G needle, posterior approach Medications: 20 mg bupivacaine 0.5 %; 40 mg lidocaine 1 %; 80 mg triamcinolone acetonide 40 MG/ML Outcome: tolerated well, no immediate complications Procedure, treatment alternatives, risks and benefits explained, specific risks discussed. Consent was given by the patient. Immediately prior to procedure a time out was called to verify the correctpatient, procedure, equipment, intelligence support officer and site/side marked as required. Patient was prepped and draped in the usual sterile fashion. Assessment/Plan We discussed treatment options. She has had an acute exacerbation of her right shoulder pain related to chronic rotator cuff disease. We discussed the risks and benefits of injection, including the risk of worsening pain and or infection. Decision was made to proceed with right shoulder subacromialinjection which she tolerated well. She will continue to progress her activities as tolerated. We will see her back in about 4 months. documented in this encounter Plan of Treatment Not on file documented as of this encounter Procedures Procedure Name Priority Date/Time Associated Diagnosis Comments ME ARTHROCENTESIS ASPIR&/INJ MAJOR JT/BURSA W/O US Routine 12/25/2021 10:00 AM EST Rotator cuff tendinitis, right documented in this encounter Results * ME ARTHROCENTESIS ASPIR&/INJ MAJOR JT/BURSA W/O US (12/25/2021 10:00 AM EST) Addison Daley MD - 12/25/2021 10:00 AM EST Addison Nicholson MD ? 12/26/2021 ??5:32 PM Injection - Large Joint: R subacromial bursa Indications: pain Details: 22 G needle, posterior approach Medications: 20 mg bupivacaine 0.5 %; 40 mg lidocaine 1 %; 80 mg triamcinolone acetonide 40 MG/ML Outcome: tolerated well, no immediate complications Procedure, treatment alternatives, risks and benefits explained, specific risks discussed. Consent was given by the patient. Immediately prior to procedure a time out was called to verify the correct patient, procedure, equipment, intelligence support officer and site/side marked as required. Patient was prepped and draped in the usual sterile fashion. us Addison Nicholson MD IN CLINIC/BEDSIDE ORDERABLES Slick gianfranco Result - Final documented in this encounter Visit Diagnoses Diagnosis Rotator cuff tendinitis, right- Primary documented in this encounter Administered Medications Inactive Administered Medications - up to 3 most recent administrations Medication Order MAR Action Action Date Dose Rate Site bupivacaine (Marcaine) 0.5 % injection 20 mg 20 mg, Injection, Once PRN Procedure, 1 dose, Starting on Kelly 12/25/21 at 1052, Until Kelly 12/25/21 at 1052, RoutineIndications:Rotator cuff tendinitis, right Given 12/25/2021 10:52 AM EST 20 mg lidocaine (Xylocaine) 1 % injection 40 mg 40 mg, Injection, Once PRN Procedure, 1 dose, Starting on Kelly 12/25/21 at 1052, Until Kelly 12/25/21 at 1052, RoutineIndications:Rotator cuff tendinitis, right Given 12/25/2021 10:52 AM EST 40 mg triamcinolone acetonide (Kenalog-40) injection 80 mg 80 mg, Intra-articular, Once PRN Procedure, 1 dose, Starting on Kelly 12/25/21 at 1052, Until Kelly 12/25/21 at 1052, RoutineIndications:Rotator cuff tendinitis, right Given 12/25/2021 10:52 AM EST 80 mg documented in this encounter Additional Health Concerns Assessment Noted Time A fall risk assessment has been complete d for the patient 12/25/2021 9:46 AM EST documented as of this encounter Care Teams Freelance Interpreter/Translator Relationship Specialty Start Date End Date Pravin Olson MD [address] [place] [address] PCP - General 05/29/21 documented as of this encounter
--- OUTSIDE RECORDS SUMMARY | 2024-10-19 10:39 | XMS_ITS | Encounter Summary ---
Author Organization [facility] Address [address] [place] [address] Care Team Providers Care Beet Flumer Name Role Phone Pravin Olson MD Primary Care Provider Reason for Visit * Reason Comments Follow-up Encounter Details Date Type Department Care Team (Late st Contact Info) Description 05/29/2021 10:40 AM EDT Office Visit [facility] Orthopaedic Surgery & Sports Medicine [address], [address] [place] [address] Addison Nicholson MD [address] [place] [address] Rotator cuff tendinitis, right (Primary Dx) [...] or suspected to have Coronavirus / COVID-19? No / Unsure 05/29/2021 10:31 AM EDT documented as of this encounter Last Filed Vital Signs Vital Sign Reading Time Taken Comments Blood Pressure 112/75 05/29/2021 10:42 AM EDT Pulse 78 05/29/2021 10:42 AM EDT Temperature - - Respiratory Rate - - Oxygen Saturation 95% 05/29/2021 10:42 AM EDT Inhaled Oxygen Concentration - - Weight - - Height - - Body Mass Index - - documented in this encounter Miscellaneous Notes * Progress Notes - Addison Nicholson MD - 05/29/2021 10:40 AM EDT Chief Complaint: Right shoulder pain History of present illness: Leslie Mix is a 60 y.o. female who returns for evaluation of her right shoulder. She was last seen several months ago. She had a rotator cuff repair about 5 years ago.She was doing well until the past week or 2 when she started having increased pain about the anterolateral aspect of her right shoulder. I have reviewed the patients History including the Past Medical , Surgical, Family and Social History as well as Medications and Allergies. Physical Exam: She has no cervical tenderness negative Spurling's. She has no atrophy around the shoulder. She has full range of motion. She has positive impingement signs and painful arc of abduction. She has mild pain with testing her supraspinatus with mild weakness. She will formal lift off. She is neurovascular intact distally. Procedure: Risks, benefits and options were discussed with the patient. Decision was made to proceed with injection. Informed consent was obtained. A time out was performed verifying the patient's identity, procedure, and sites of treatment. The area was prepped in sterile fashion. The Right subacromial spacewas injected with 4mL of 1% lidocaine, 4 mL of 0.5% Bupivicaine, and 2 mL of a 40mg/ML solution of Kenalog. Patient tolerated this well without apparent complication. The patient was given instructions for post injection care. Assessment and Plan: We discussed options. She has had an acute exacerbation of her right shoulder pain related to rotator cuff tendinitis. We discussed different treatment options. Decision was madeto proceed with a right shoulder subacromial injection. We discussed the risks and benefits of injection including the risk of worsening pain and or infection. She tolerated this well. She will continue with activities as tolerated. We will check her back in 3-4 months. documented in this encounter Plan of Treatment Not on file documented as of this encounter Visit Diagnoses Diagnosis Rotator cuff tendinitis, right- Primary documented in this encounter Care Teams Beet Flumer Relationship Specialty Start Date End Date Pravin Olson MD [address] [place] [address] PCP - General 05/29/21 documented as of this encounter
--- OUTSIDE RECORDS SUMMARY | 2024-10-19 10:39 | XMS_ITS | Encounter Summary ---
Author Organization Healthcare Address [address] [place], [place] [id number] Care Team Providers Care Hogshead Hand Name Role Phone Pravin Olson MD Primary Care Provider [phone] Reason for Referral * Other Medical (Routine) - Pending Review Specialty Diagnoses / Procedures Referred By Geri oneill Referred To Contact Diagnoses Disorder of right rotator cuff Procedures Injection - Large Joint: R subacromial bursa Addison Nicholson MD [address] [address] Phone: tel: fax: Referral ID Status Reason Start Date Expiration Date V isits Requested Visits Authorized [id number] Pending Review 01/21/2024 07/22/2025 1 1 Reason for Visit * Reason Comments Follow-up Encounter Details Date Type Department Care Team (Late st Contact Info) Description 01/20/2024 8:00 AM EST Office Visit [facility] Orthopaedic Surgery & Sports Medicine [address], [address] [place] [address] Addison Nicholson MD [address] [address] Disorder of right rotator cuff (Primary Dx) Social History Tobacco Use Types Packs/Day Years Used Date Smoking Tobacco: Never Smokeless Tobacco: Never Tobacco Cessation:Counseling Given: Not Answered Comments Unknown Sex and Gender Information Value Date Recorded Sex Assigned at Not on file Legal Sex Female 7:32 PM EDT Gender Identity Not on file Sexual Orientation Not on file documented as of this encounter Last Filed Vital Signs Vital Sign Reading Time Taken Comments Blood Pressure 122/73 01/20/2024 7:49 AM EST Pulse 71 01/20/2024 7:49 AM EST Temperature - - Respiratory Rate - - Oxygen Saturation 98% 01/20/2024 7:49 AM EST Inhaled Oxygen Concentration - - Weight 69.4 kg (153 lb) 01/20/2024 7:49 AM EST Height 160 cm (5' 3 ) 01/20/2024 7:49 AM EST Body Mass Index 27.1 01/20/2024 7:49 AM EST documented in this encounter Miscellaneous Notes * Progress Notes - Addison Nicholson MD - 01/20/2024 8:00 AM ESTAssociated Order(s): Injection - Large Joint: R subacromial bursa Post-Procedure Diagnose(s): Disorder of right rotator cuff History of present illness: Leslie Mix is a 63 y.o. female who follows up for chronic right shoulder pain. She was last seen 09/23/2023 at which time she received right subacromial corticosteroid injection. She states that this provided her only a few weeks significant relief of pain. Previouslyshe was getting several months of relief. She has a past history of rotator cuff repair over 5 years ago. She takes Tylenol for pain. Recently she was prescribed Mobic by her primary care physician. She has not yet started taking this medication yet. I have reviewed and updated the patient's [...] Neurologic: orientation to person, place and time Right SHOULDER EXAM There is no cervical tenderness [...] lymphadenopathy. Imaging: X-Rays: Personally reviewed. There is mild glenohumeral arthritis. There is evidence of mild superior migration of the humeral head. Procedure: Injection - Large Joint: R subacromial bursa on 01/20/2024 8:33 AM Indications: pain Details: 22 G needle, posterior approach Medications: 40 mg lidocaine 1 %; 20 mg bupivacaine 0.5 %; 80 mg triamcinolone acetonide 40 MG/ML Outcome: tolerated well, no immediate complications Procedure, treatment alternatives, risks and benefits explained, specific risks discussed (Specificrisks included flare reaction, increased pain, increased stiffness, injury to surrounding tissues, increased risk of infection, and risk of elevated glucose level.). Consent was given by the patient.Immediately prior to procedure a time out was called to verify the correct patient, procedure, equipment, application support engineer and site/side marked as required. Patient was prepped and draped in the usual sterile fashion. Assessment/Plan Leslie Mix is a 63-year-old female with right shoulder chronic rotator cuff disease. We discussed treatment options. We discussed continued conservative management versus surgical intervention. Patient states that she does not desire surgical intervention at this time. We discussed that since she did not get lasting relief from her last injection, we could consider referring her for an ultrasound-guided injection. She wished to proceed with standard subacromial injection today, as these have worked well for her in the past. We discussed the risks of injection which include continued pain, bleeding and infection. Patient voiced her understanding and desires to proceed with injection. She will begin taking the meloxicam in about a week. She will continue with Tylenol as needed for pain. Right shoulder subacromial injection with corticosteroid was administered and the patient tolerated it well. She will follow-up in 3-4 months for repeat clinical evaluation. documented in this encounter Plan of Treatment Not on file documented as of this encounter Procedures Procedure Name Priority Date/Time Associated Diagnosis Comments ND ARTHROCENTESIS ASPIR&/INJ MAJOR JT/BURSA W/O US Routine 01/20/2024 8:33 AM EST Disorder of right rotator cuff documented in this encounter Results * ND ARTHROCENTESIS ASPIR&/INJ MAJOR JT/BURSA W/O US (01/20/2024 8:33 AM EST) Narrative Addison Nicholson MD - 01/20/2024 8:33 AM EST Addiosn Nicholson MD ? 01/21/2024 ??7:26 PM Injection - Large Joint: R subacromial bursa on 01/20/2024 8:33 AM Indications: pain Details: 22 G needle, posterior approach Medications: 40 mg lidocaine 1 %; 20 mg bupivacaine 0.5 %; 80 mg triamcinolone acetonide 40 MG/ML Outcome: tolerated well, no immediate complications Procedure, treatment alternatives, risks and benefits explained, specific risks discussed (Specific risks included flare reaction, increased pain, increased stiffness, injury to surrounding tissues, increased risk of infection, and risk of elevated glucose level.). Consent was given by the patient. Immediately prior to procedure a time out was called to verify the correct patient, procedure, equipment, application support engineer and site/side marked as required. Patient was prepped and draped in the usual sterile fashion. Addison Nicholson MD IN CLINIC/BEDSIDE ORDERABLES Fin al Result documented in this encounter Visit Diagnoses Diagnosis Disorder of right rotator cuff- Primary documented in this encounter Administered Medications Inactive Administered Medications - up to 3 most recent administrations Medication Order MAR Action Action Date Dose Rate Site bupivacaine (Marcaine) 0.5 % injection 20 mg 20 mg, Injection, Once PRN Procedure, 1 dose, Starting on Kelly 01/20/24 at 0833, Until Kelly 01/20/24 at 0833, RoutineIndications:Disorder of right rotator cuff Given 01/20/2024 8:33 AM EST 20 mg lidocaine (Xylocaine) 1 % injection 40 mg 40 mg, Intra-articular, Once PRN Procedure, 1 dose, Starting on Kelly 01/20/24 at 0833, Until Kelly 01/20/24 at 0833, RoutineIndications:Disorder of right rotator cuff Given 01/20/2024 8:33 AM EST 40 mg triamcinolone acetonide (Kenalog-40) injection 80 mg 80 mg, Intra-articular, Once PRN Procedure, 1 dose, Starting on Kelly 01/20/24 at 0833, Until Kelly 01/20/24 at 0833, RoutineIndications:Disorder of right rotator cuff Given 01/20/2024 8:33 AM EST 80 mg documented in this encounter Additional Health Concerns Assessment Noted Time A fall risk assessment has been complete d for the patient 04/15/2023 8:24 AM EDT A Body Mass Index follow-up plan has been documented for the patient 01/21/2024 7:26 PM EST documented as of this encounter Care Teams Hogshead Hand Relationship Specialty Start Date End Date Pravin Olson MD [address] [place] [address] PCP - General 05/29/21 documented as of this encounter
--- OUTSIDE RECORDS SUMMARY | 2024-10-19 10:39 | XMS_ITS | Clinical Summary ---
Author Organization Healthcare Address [address] [place] [address] Care Team Providers Care Rn Circulating Name Role Phone Pravin Olson MD Primary Care Provider [phone] Allergies Active Allergy Reactions Criticality Noted Date Comments Cefazolin Rash Low 08/12/2012 Cephalexin Unknown - Patient states they do not know rxn details Low 09/24/2016 Lanolin Rash Low 08/22/2022 Other Anaphylaxis High 08/12/2012 throat swells Peanut Allergen Powder-Dnfp Swelling High 11/01/2019 Penicillins Rash,Unknown - Patie nt states they do not know rxn details Low 08/12/2012 [place] Hives Medium 08/22/2022 Tomato Itching Medium 08/12/2012 Wheat Other - please docum ent in the comment field Low 08/12/2012 sneezing Medications budesonide-form oterol (Symbicort) 80-4.5 MCG/ACT inhaler 1 Active lisinopril-hydr oCHLOROthiazide 10-12.5 MG tablet 1 Active naproxen (Naprosyn) 500 MG tablet 1 Active pantoprazole (ProtoNix) 40 MG EC tablet 1 Active Pitavastatin Calcium (Livalo) 4 MG tablet 1 Active meloxicam (Mobic) 7.5 MG tabletIndicatio ns:Rotator cuff tendinitis, right Take 1-2 daily as needed for pain. Do not exceed more than 2 tablets in 24 hours. 60 tablet 2 2 Active Additional Information Patient taking differently: Has not started taking this yet, Reported on 01/20/2024 cholecalciferol (Vitamin D-3) 250 MCG (27728 UT) capsule Take 1 capsule (10,000 Units) by mouth 1 (one) time each day. Active Family History Medical History Relation Name Comments Hyperlipidemia Father Hypertension Father Heart Problem Mother Kidney disease Mother Rheum arthritis Mother Relation Name Status Comments Father Mother Social History Tobacco Use Types Packs/Day Years Used Date Smoking Tobacco: Never Smokeless Tobacco: Never Tobacco Cessation:Counseling Given: Not Answered Comments Unknown Sex and Gender Information Value Date Recorded Sex Assigned at Not on file Legal Sex Female 7:32 PM EDT Gender Identity Not on file Sexual Orientation Not on file Last Filed Vital Signs Vital Sign Reading [...] Mass Index 27.1 01/20/2024 7:49 AM EST Plan of Treatment Health Maintenance Due Date Last Done Comments [facility]-Bone Density Scan 1958 [facility]Depression Screening 1958 [facility]-Hepatitis C Screening 1960 [facility]-Medicare Annual Wellness (AWV) 1960 [facility]-Infant/Child/Adol SDOH Screenings 1958 [facility]- SDOH Screenings 1976 [facility]-Adult SDOH Screenings 1976 CT Colonography 2003 Colonoscopy 2003 [facility]-DNA 2003 FIT 2003 FOBT 2003 Sigmoidoscopy 2003 [facility]-Colorectal Cancer Screening 2003 [facility]-Breast Cancer Screening 2008 [facility]-Zoster Vaccines (1 of 2) 2008 [id number] Vaccine (2 - season) 2024 02/22/2021 [facility]-Influenza Vaccine (#1) 2024 11/13/2022 [facility]-DTaP,Tdap,and Td Vaccines (2 - Td or Tdap) 06/27/2033 06/27/2023 [facility]-RSV Vaccine: 60+ Years or (1 - 1-dose 75+ series) 2033 [facility]-Pneumococcal Vaccine: 65+ Years Completed 10/04/2023 [facility]-Obesity Intervention Completed 024, 09/23/2023, 04/15/2023, Additional history exists [facility]-HIB Vaccines Aged Out No longer e ligible based on patient's age to complete this topic [facility]-HPV Vaccines Aged Out No longer e ligible based on patient's age to complete this topic [facility]-Hepatitis A Vaccines Aged Out No longer eligible based on patient's age to complete this topic [facility]-IPV Vaccines Aged Out No longer e ligible based on patient's age to complete this topic [facility]-Rotavirus Vaccines Aged Out No lo nger eligible based on patient's age to complete this topic Insurance MEDICARE Care Teams Rn Circulating Relationship Specialty Start Date End Date Pravin Olson MD [address] [place] [address] PCP - General 05/29/21
--- OUTSIDE RECORDS SUMMARY | 2024-10-19 10:39 | XMS_ITS | Encounter Summary ---
Author Organization Healthcare Address [facility] [place] [address] Care Team Providers Care Trauma Registrar Name Role Phone Pravin Olson MD Primary Care Provider [phone] Encounter Details Date Type Department Care Team (Latest Contact Info) Description 09/18/2021 Travel Social History Tobacco Use Types Packs/Day [...] have Coronavirus / COVID-19? No / Unsure 09/18/2021 9:26 AM EDT documented as of this encounter Plan of Treatment Not on file documented as of this encounter Visit Diagnoses Not on filedocumented in this encounter Care Teams Trauma Registrar Relationship Specialty Start Date End Date Pravin Olson MD [address] [place] [address] PCP - General 05/29/21 documented as of this encounter
--- OUTSIDE RECORDS SUMMARY | 2024-10-19 10:39 | XMS_ITS | Encounter Summary ---
Author Organization [facility] Address [address] [place] [address] Care Team Providers Care Keyboard Operator Name Role Phone Pravin Olson MD Primary Care Provider [phone] Encounter Details Date Type Department Care Team (Latest Contact Info) Description 04/30/2022 Travel Social History Tobacco Use Types Packs/Day Years Used Date Smoking Tobacco: Never Smokeless Tobacco: Never Comments Unknown Sex and Gender Information Value Date Recorded Sex Assigned at Not on file Legal Sex Female 7:32 PM EDT Gender Identity Not on file Sexual Orientation Not on file COVID-19 Exposure Response Date Recorded In the last 10 days, have yo u been in contact with someone who was confirmed or suspected to have Coronavirus/COVID-19? No / Unsure 04/30/2022 9:44 AM EDT documented as of this encounter Plan of Treatment Not on file documented as of this encounter Visit Diagnoses Not on filedocumented in this encounter Additional Health Concerns Assessment Noted Time A fall risk assessment has been complete d for the patient 04/30/2022 9:51 AM EDT documented as of this encounter Care Teams Keyboard Operator Relationship Specialty Start Date End Date Pravin Olson MD [address] [place] [address] PCP - General 05/29/21 documented as of this encounter
--- OUTSIDE RECORDS SUMMARY | 2024-10-19 10:39 | XMS_ITS | Encounter Summary ---
Author Organization [facility] Address [address] [place] [address] Care Team Providers Care Hat Band Attacher Name Role Phone Pravin Olson MD Primary Care Provider [phone] Encounter Details Date Type Department Care Team (Latest Contact Info) Description 08/04/2022 Travel Social History Tobacco Use Types Packs/Day [...] suspected to have Coronavirus/COVID-19? No / Unsure 08/04/2022 9:35 AM EDT documented as of this encounter Plan of Treatment Not on file documented as of this encounter Visit Diagnoses Not on filedocumented in this encounter Additional Health Concerns Assessment Noted Time A fall risk assessment has been complete d for the patient 08/04/2022 9:41 AM EDT documented as of this encounter Care Teams Hat Band Attacher Relationship Specialty Start Date End Date Pravin Olson MD [address] [place] [address] PCP - General 05/29/21 documented as of this encounter
--- OUTSIDE RECORDS SUMMARY | 2024-10-19 10:39 | XMS_ITS | Encounter Summary ---
Author Organization Healthcare Address [address] [place] [address] Care Team Providers Care Final Rail Cutter Name Role Phone Pravin Olson MD Primary Care Provider [phone] Encounter Details Date Type Department Care Team (Latest Contact Info) Description 09/23/2023 Travel Social History Tobacco Use Types Packs/Day Years Used Date Smoking Tobacco: Never Smokeless Tobacco: Never Comments Unknown Sex and Gender Information Value Date Recorded Sex Assigned at Not on file Legal Sex Female 7:32 PM EDT Gender Identity Not on file Sexual Orientation Not on file documented as of this encounter Plan of Treatment Not on file documented as of this encounter Visit Diagnoses Not on filedocumented in this encounter Additional Health Concerns Assessment Noted Time A fall risk assessment has been complete d for the patient 04/15/2023 8:24 AM EDT A Body Mass Index follow-up plan has been documented for the patient 09/24/2023 12:34 PM EST documented as of this encounter Care Teams Final Rail Cutter Relationship Specialty Start Date End Date Pravin Olson MD [address] [place] [address] PCP - General 05/29/21 documented as of this encounter
--- OUTSIDE RECORDS SUMMARY | 2024-10-19 10:39 | XMS_ITS | Encounter Summary ---
Author Organization Healthcare Address [facility] [place] [address] Care Team Providers Care Lap Checker Name Role Phone Unavailable Primary Care Provider Unavailabl e Encounter Details Date Type Department Care Team (Late st Contact Info) Description 10/28/2017 [facility] Vitals Encounter [facility] OUTPATIENT CONVERSIONS [address] [place] [address] ProviderBarbara MD [facility] [place] [address] Social History Tobacco Use Types Packs/Day Years Used Date Smoking Tobacco: Never Assessed Comments Unknown Sex and Gender Information Value Date Recorded Sex Assigned at Not on file Legal Sex Female 7:32 PM EDT Gender Identity Not on file Sexual Orientation Not on file documented as of this encounter Last Filed Vital Signs Vital Sign Reading Time Taken Comments Blood Pressure - - Pulse - - Temperature - - Respiratory Rate - - Oxygen Saturation - - Inhaled Oxygen Concentration - - Weight 74.8 kg (164 lb 14.5 oz) 10/28/2017 9:40 AM EST Height 160 cm (5' 3 ) 10/28/2017 9:40 AM EST Body Mass Index 29.21 10/28/2017 9:40 AM EST documented in this encounter Plan of Treatment Not on file documented as of this encounter Visit Diagnoses Not on filedocumented in this encounter
--- OUTSIDE RECORDS SUMMARY | 2024-10-19 10:39 | XMS_ITS | Encounter Summary ---
Author Organization Healthcare Address [address] [place] [address] Care Team Providers Care Language Asst Name Role Phone Pravin Olson MD Primary Care Provider [phone] Reason for Referral * Other Medical (Routine) - Closed Specialty Diagnoses / Procedures Referred By Geri oneill Referred To Contact Diagnoses Rotator cuff tendinitis, right Procedures Injection - Large Joint: R subacromial bursa Addison Nicholson MD [address] [address] Phone: tel: fax: Referral ID Status Reason Start Date Expiration Date Visits Re quested Visits Authorized [id number] Closed 12/17/2022 06/17/2024 1 1 Reason for Visit * Reason Comments Injections Encounter Details Date Type Department Care Team (Late st Contact Info) Description 12/17/2022 9:50 AM EST Office Visit [facility] Orthopaedic Surgery & Sports Medicine [address], [address] [place] [address] Addison Nicholson MD [address] [address] Rotator cuff tendinitis, right (Primary [...] Recorded In the last 10 days, have loco hancock been in contact with someone who was confirmed or suspected to have Coronavirus/COVID-19? No / Unsure 12/17/2022 9:40 AM EST documented as of this encounter Last Filed Vital Signs Vital Sign Reading Time Taken Comments Blood Pressure 105/63 12/17/2022 9:42 AM EST Pulse - - Temperature - - Respiratory Rate - - Oxygen Saturation - - Inhaled Oxygen Concentration - - Weight 69.9 kg (154 lb) 12/17/2022 9:42 AM EST Height 160 cm (5' 3 ) 12/17/2022 9:42 AM EST Body Mass Index 27.28 12/17/2022 9:42 AM EST documented in this encounter Miscellaneous Notes * Progress Notes - Dave Sharp MD - 12/17/2022 9:50 AM ESTAssociated Order(s): Injection - Large Joint: R subacromial bursa Post-Procedure Diagnose(s): Rotator cuff tendinitis, right History of present illness: Leslie Mix is a 61 y.o. female who returns for evaluation of her right shoulder. She has a previous history of rotator cuff repair over 5 years ago. Previously reperformed a subacromial injection in her right shoulder approximately 4 months ago which she says worked very well. She only recently has begun to develop some pain with overhead activities over the anterolateral shoulder and would like a repeat injection today. No other new questions or concerns this time. She is retired but helps take care of her 2 grandchildren. I have reviewed and updated the patient's past medical history, past surgical history, social history, and family history. This is located both in the patient's note and their intake form that has been scanned into the medical record for today's visit. 14 point review of systems was reviewed per signed intake sheet and is otherwise negative except asnoted above. RIGHT SHOULDER EXAM There is no cervical [...] - Large Joint: R subacromial bursa on 12/17/2022 10:00 AM Indications: pain Details: 22 G needle, [...] to verify the correct patient, procedure, equipment, account support specialist and site/side marked as required. Patient was prepped and draped in the usual sterile fashion. Assessment/Plan We discussed treatment options. She has had an acute exacerbation of her right shoulder pain related to chronic rotator cuff disease. We discussed the risks and benefits of injection, including the risk of worsening pain and/or infection. Decision was made to proceed with right shoulder subacromialinjection which she tolerated well. She will continue to progress her activities as tolerated. We will see her back in about 3-4 months. Cosigned by Addison Nicholson MD at 12/17/2022 5:26 PM EST Associated attestation - Addison Nicholson MD - 12/17/2022 5:26 PM EST I saw and evaluated the patient with the resident/fellow. I discussed the case with the resident/fellow and agree with the findings and plan as documented. I personally performed the right shoulder subacromial injection. documented in this encounter Plan of Treatment Not on file documented as of this encounter Procedures Procedure Name Priority Date/Time Associated Diagnosis Comments [place] ARTHROCENTESIS ASPIR&/INJ MAJOR JT/BURSA W/O US Routine 12/17/2022 10:00 AM EST Rotator cuff tendinitis, right documented in this encounter Results * [place] ARTHROCENTESIS ASPIR&/INJ MAJOR JT/BURSA W/O US (12/17/2022 10:00 AM EST) Narrative Addison Nicholson MD - 12/17/2022 10:00 AM EST Addison Nicholson MD ? 12/17/2022 ??5:26 PM Injection - Large Joint: R subacromial bursa on 12/17/2022 10:00 AM Indications: pain Details: 22 G needle, [...] to verify the correct patient, procedure, equipment, account support specialist and site/side marked as required. Patient was prepped and draped in the usual sterile fashion. us Addison Nicholson MD IN CLINIC/BEDSIDE ORDERABLES Fin [...] PRN Procedure, 1 dose, Starting on Kelly 12/17/22 at 1000, Until Kelly 12/17/22 at 1000, RoutineIndications:Rotator cuff tendinitis, right Given 12/17/2022 10:00 AM EST 20 mg lidocaine (Xylocaine) 1 % injection 40 mg 40 mg, Intra-articular, Once PRN Procedure, 1 dose, Starting on Kelly 12/17/22 at 1000, Until Kelly 12/17/22 at 1000, RoutineIndications:Rotator cuff tendinitis, right Given 12/17/2022 10:00 AM EST 40 mg triamcinolone acetonide (Kenalog-40) injection 80 mg 80 mg, Intra-articular, Once PRN Procedure, 1 dose, Starting on Kelly 12/17/22 at 1000, Until Kelly 12/17/22 at 1000, RoutineIndications:Rotator cuff tendinitis, right Given 12/17/2022 10:00 AM EST 80 mg documented in this encounter Additional Health Concerns Assessment Noted Time A fall risk assessment has been complete d for the patient 12/17/2022 9:42 AM EST A Body Mass Index follow-up plan has been documented for the patient 12/17/2022 5:26 PM EST documented as of this encounter Care Teams Language Asst Relationship Specialty Start Date End Date Pravin Olson MD [address] [place] [address] PCP - General 05/29/21 documented as of this encounter
--- OUTSIDE RECORDS SUMMARY | 2024-10-19 10:39 | XMS_ITS | Encounter Summary ---
Author Organization Healthcare Address [address] [id number] Care Team Providers Care Instructional Designer Name Role Phone Unavailable Primary Care Provider Unavailabl e Encounter Details Date Type Department Care Team (Late st Contact Info) Description 05/04/2017 [facility] Vitals Encounter [facility] OUTPATIENT CONVERSIONS [address] [place] [address] ProviderBarbara MD [facility] [address] Social History Tobacco Use Types [...] - Inhaled Oxygen Concentration - - Weight 74.4 kg (164 lb) 05/04/2017 9:52 AM EDT Height 160 cm (5' 3 ) 05/04/2017 9:52 AM EDT Body Mass Index 29.05 05/04/2017 9:52 AM EDT documented in this encounter Plan of Treatment Not on file documented as of this encounter Visit Diagnoses Not on filedocumented in this encounter
--- OUTSIDE RECORDS SUMMARY | 2024-10-19 10:39 | XMS_ITS | Encounter Summary ---
Author Organization Healthcare Address [address] [place] [address] Care Team Providers Care Lime Boiler Name Role Phone Pravin Olson MD Primary Care Provider [phone] Reason for Referral * Other Medical (Routine) - Closed Specialty Diagnoses / Procedures Referred By Geri oneill Referred To Contact Diagnoses Rotator cuff tendinitis, right Procedures Injection - Large Joint: R subacromial bursa Mauro Tolentino MD [address] [address] Phone: tel: fax: Referral ID Status Reason Start Date Expiration Date Visits Re quested Visits Authorized [id number] Closed 09/28/2021 03/30/2023 1 1 Reason for Visit * Reason Comments Injections Encounter Details Date Type Department Care Team (Late st Contact Info) Description 09/18/2021 9:50 AM EDT Office Visit [facility] Orthopaedic Surgery & Sports Medicine [address], [address] [place] [address] Mauro Tolentino MD [address] [address] Rotator cuff tendinitis, right (Primary [...] Sign Reading Time Taken Comments Blood Pressure 118/79 09/18/2021 9:36 AM EDT Pulse 83 09/18/2021 9:36 AM EDT Temperature - - Respiratory Rate - - Oxygen Saturation 100% 09/18/2021 9:36 AM EDT Inhaled Oxygen Concentration - - Weight 77.1 kg (170 lb) 09/18/2021 9:36 AM EDT Height 160 cm (5' 3 ) 09/18/2021 9:36 AM EDT Body Mass Index 30.11 09/18/2021 9:36 AM EDT documented in this encounter Miscellaneous Notes * Progress Notes - Mauro Tolentino MD - 09/18/2021 9:50 AM EDTAssociated Order(s): Injection - Large Joint: R subacromial bursa Post-Procedure Diagnose(s): Rotator cuff tendinitis, right History of present illness: Leslie Mix is a 61 y.o. female who returns for evaluation of her right shoulder. She has a history of rotator cuff repair over 5 years ago. She had a subacromial injection 4 months ago and was doing well until the past couple of weeks. She has had some increased pain. She denies any new injury. I have reviewed and updated the patient's [...] palpable epitrochlear lymphadenopathy. Imaging: X-Rays: Personally reviewed. Humeral head remains well centered. She has some mild degenerative changes. Nosuperior migration. Procedure: Injection - Large Joint: R subacromial [...] called to verify the correctpatient, procedure, equipment, decision support analyst and site/side marked as required. Patient was prepped and draped in the usual sterile fashion. Assessment/Plan She has had an acute exacerbation of her right shoulder pain related to rotator cuff tendinitis. Wediscussed treatment options. We discussed the risks and benefits of injection, including the risk of worsening pain and or infection. She wished to proceed with right shoulder subacromial injection. This was performed today and she tolerated it well. She will continue with activities as tolerated. We will see her back in 3-4 months. 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 Sclerosis and irregularity of the greater tuberosity with narrowing of the subacromial space. CRITICAL RESULT: ?? No. COMMUNICATION: Per this written report. By electronically signing this report, I, the attending physician, attest that I have personally reviewed the images/data for the above examination(s) and agree with the final edited report. Signed by Blayne Owusu on ??09/18/2021 10:09 AM Narrative 09/18/2021 10:09 AM EDT Exam/Procedure: XR SHOULDER RIGHT 2+ VIEWS ordered by MAURO TOLENTINO [id number] CLINICAL INDICATION: Chronic pain of the right shoulder. TECHNIQUE: XR SHOULDER RIGHT 2+ VIEWS COMPARISON: Right shoulder x-ray July 20, 2019 FINDINGS: The humeral head is aligned with the glenoid. There is mild joint space narrowing and osteophytosis of the glenohumeral and acromioclavicular joints. There is irregularity and sclerosis of the greater tubercle. No acute fracture. No soft tissue swelling. Visualized portions of the right lung are clear. Procedure Note Blayne Owusu MD - 09/18/2021 Exam/Procedure: XR SHOULDER RIGHT 2+ VIEWS ordered by MAURO [id number] CLINICAL INDICATION: Chronic pain of the right shoulder. TECHNIQUE: XR SHOULDER RIGHT 2+ VIEWS COMPARISON: Right shoulder x-ray July 20, 2019 FINDINGS: The humeral head is aligned with the glenoid. There is mild joint spacenarrowing and osteophytosis of the glenohumeral and acromioclavicularjoints. There is irregularity and sclerosis of the greater tubercle. Noacute fracture. No soft tissue swelling. Visualized portions of the rightlung are clear. 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 CRITICAL RESULT: No. COMMUNICATION: Per this written report. By electronically signing this report, I, the attending physician, renetta I have personally reviewed the images/data for the aboveexamination(s) and agree with the final edited report. Signed by Blayne Owusu on 09/18/2021 10:09 AM Mauro Tolentino MD IMG XR PROCEDURES Final Result * [place] ARTHROCENTESIS ASPIR&/INJ MAJOR JT/BURSA W/O US (09/18/2021 9:50 AM EDT) Mauro Daley MD - 09/18/2021 9:50 AM EDT Mauro Tolentino MD ? 09/28/2021 10:14 AM Injection - Large Joint: R subacromial bursa [...] to verify the correct patient, procedure, equipment, decision support analyst and site/side marked as required. Patient was prepped and draped in the usual sterile fashion. Mauro Tolentino MD IN CLINIC/BEDSIDE ORDERABLES Fin al Result documented in this encounter Visit Diagnoses Diagnosis Rotator cuff tendinitis, right- Primary documented in this encounter Administered Medications Inactive Administered Medications - up to 3 most recent administrations Medication Order MAR Action Action Date Dose Rate Site bupivacaine (Marcaine) 0.5 % injection 20 mg 20 mg, Injection, Once PRN Procedure, 1 dose, Starting on 09/28/21 at 1014, Until 09/28/21 at 1014, RoutineIndications:Rotator cuff tendinitis, right Given 09/28/2021 10:14 AM EST 20 mg lidocaine (Xylocaine) 1 % injection 40 mg 40 mg, Injection, Once PRN Procedure, 1 dose, Starting on 09/28/21 at 1014, Until 09/28/21 at 1014, RoutineIndications:Rotator cuff tendinitis, right Given 09/28/2021 10:14 AM EST 40 mg triamcinolone acetonide (Kenalog-40) injection 80 mg 80 mg, Intra-articular, Once PRN Procedure, 1 dose, Starting on 09/28/21 at 1014, Until 09/28/21 at 1014, RoutineIndications:Rotator cuff tendinitis, right Given 09/28/2021 10:14 AM EST 80 mg documented in this encounter Care Teams Lime Boiler Relationship Specialty Start Date End Date Pravin Olson MD [address] [place] [address] PCP - General 05/29/21 documented as of this encounter
--- OUTSIDE RECORDS SUMMARY | 2024-10-19 10:39 | XMS_ITS | Encounter Summary ---
Author Organization [facility] Address [address] [place] [address] Care Team Providers Care Maintenance Mechanic Millwright Name Role Phone Pravin Olson MD Primary Care Provider [phone] Reason for Referral * Other Medical (Routine) - Closed Specialty Diagnoses / Procedures Referred By Geri oneill Referred To Contact Diagnoses Rotator cuff tendinitis, right Procedures Injection - Large Joint: R subacromial bursa [facility] [address] [address] Phone: tel: fax: Addison [facility] [address] Phone: tel: fax: Referral ID Status Reason Start Date Expiration Date Visits Re quested Visits Authorized [id number] Closed 08/04/2022 02/03/2024 1 1 Reason for Visit * Reason Comments Follow-up * Other Medical (Routine) - Closed Specialty Diagnoses / Procedures Referred By Geri oneill Referred To Contact Diagnoses Rotator cuff tendinitis, right Procedures Injection - Large Joint: R subacromial bursa [facility] [address] Phone: tel: fax: Addison [facility] [address] Phone: tel: fax: Referral ID Status Reason Start Date Expiration Date Visits Re quested Visits Authorized [id number] Closed 08/04/2022 02/03/2024 1 1 Encounter Details Date Type Department Care Team (Late st Contact Info) Description 08/04/2022 9:50 AM EDT Office Visit [facility] Orthopaedic Surgery & Sports Medicine [address] [place] [address] Addison Nicholson MD [address] [place] [address] Rotator cuff tendinitis, right (Primary [...] In the last 10 days, have loco u been in contact with someone who was confirmed or suspected to have Coronavirus/COVID-19? No / Unsure 08/04/2022 9:35 AM EDT documented as of this encounter Last Filed Vital Signs Vital Sign Reading Time Taken Comments Blood Pressure 119/79 08/04/2022 9:40 AM EDT Pulse - - Temperature - - Respiratory Rate - - Oxygen Saturation 100% 08/04/2022 9:40 AM EDT Inhaled Oxygen Concentration - - Weight 74.4 kg (164 lb) 08/04/2022 9:40 AM EDT Height 160 cm (5' 3 ) 08/04/2022 9:40 AM EDT Body Mass Index 29.05 08/04/2022 9:40 AM EDT documented in this encounter Miscellaneous Notes * Progress Notes - Addison Nicholson MD - 08/04/2022 9:50 AM EDTAssociated Order(s): Injection - Large [...] lateral aspect of the shoulder, worse with overhead activity. She denies any new injuries. I have reviewed [...] - Large Joint: R subacromial bursa on 08/04/2022 11:29 AM Indications: pain Details: 22 G needle, [...] to verify the correct patient, procedure, equipment, technical customer support specialist and site/side marked as required. [...] see her back in about 3-4 months. A prescription for meloxicam 7.5 mg 1-2 daily as needed for pain was provided. documented in this encounter Plan of Treatment Not on file documented as of this encounter Procedures Procedure Name Priority Date/Time Associated Diagnosis Comments [place] ARTHROCENTESIS ASPIR&/INJ MAJOR JT/BURSA W/O US Routine 08/04/2022 11:29 AM EDT Rotator cuff tendinitis, right documented in this encounter Results * [place] ARTHROCENTESIS ASPIR&/INJ MAJOR JT/BURSA W/O US (08/04/2022 11:29 AM EDT) Narrative Addison Nicholson MD - 08/04/2022 11:29 AM EDT Addison Nicholson MD ? 08/04/2022 ??2:45 PM Injection - Large Joint: R subacromial bursa on 08/04/2022 11:29 AM Indications: pain Details: 22 G needle, [...] to verify the correct patient, procedure, equipment, technical customer support specialist and site/side marked as required. [...] Once PRN Procedure, 1 dose, Starting on Wed08/04/22 at 1129, Until Wed08/04/22 at 1129, RoutineIndications:Rotator cuff tendinitis, right Given 08/04/2022 11:29 AM EDT 20 mg lidocaine (Xylocaine) 1 % injection 40 mg 40 mg, Intra-articular, Once PRN Procedure, 1 dose, Starting on Wed08/04/22 at 1129, Until Wed08/04/22 at 1129, RoutineIndications:Rotator cuff tendinitis, right Given 08/04/2022 11:29 AM EDT 40 mg triamcinolone acetonide (Kenalog-40) injection 80 mg 80 mg, Intra-articular, Once PRN Procedure, 1 dose, Starting on 08/04/22 at 1129, Until Tu08/04/22 at 1129, RoutineIndications:Rotator cuff tendinitis, right Given 08/04/2022 11:29 AM EDT 80 mg documented in this encounter Additional Health Concerns Assessment Noted Time A fall risk assessment has been complete d for the patient 08/04/2022 9:41 AM EDT documented as of this encounter Care Teams Maintenance Mechanic Millwright Relationship Specialty Start Date End Date Pravin Olson MD [address] [place] [address] PCP - General 05/29/21 documented as of this encounter
--- OUTSIDE RECORDS SUMMARY | 2024-10-19 10:39 | XMS_ITS | Encounter Summary ---
Author Organization Healthcare Address [address] [place], [place] [address] Care Team Providers Care Procurement Clerk Name Role Phone Pravin Olson MD Primary Care Provider [phone] Reason for Referral * Other Medical (Routine) - Closed Specialty Diagnoses / Procedures Referred By Geri oneill Referred To Contact Diagnoses Rotator cuff tendinitis, right Procedures Injection - Large Joint: R subacromial bursa Addison Nicholson MD [address] [address] Phone: tel: fax: Referral ID Status Reason Start Date Expiration Date Visits Re quested Visits Authorized [id number] Closed 05/05/2022 11/04/2023 1 1 Reason for Visit * Reason Comments Injections Encounter Details Date Type Department Care Team (Late st Contact Info) Description 04/30/2022 9:50 AM EDT Office Visit [facility] Orthopaedic Surgery & Sports Medicine [address], [address] [place] [address] Addison Nicholson MD [address] [address] Rotator cuff tendinitis, right (Primary [...] Sign Reading Time Taken Comments Blood Pressure 123/76 04/30/2022 9:50 AM EDT Pulse 71 04/30/2022 9:50 AM EDT Temperature - - Respiratory Rate - - Oxygen Saturation 98% 04/30/2022 9:50 AM EDT Inhaled Oxygen Concentration - - Weight 74.4 kg (164 lb) 04/30/2022 9:50 AM EDT Height 160 cm (5' 3 ) 04/30/2022 9:50 AM EDT Body Mass Index 29.05 04/30/2022 9:50 AM EDT documented in this encounter Miscellaneous Notes * Progress Notes - Addison Nicholson MD - 04/30/2022 9:50 AM EDTAssociated Order(s): Injection - Large [...] overhead activity. She denies any new injuries. ?? I have reviewed and updated the patient's past medical history, past surgical history, social history, and family history. This is located both in the patient's note and their intake form that has been scanned into the medical record for today's visit. ?? 14 point review of systems was reviewed per signed intake sheet and is otherwise negative except asnoted above. ?? RIGHT SHOULDER EXAM ?? There is no cervical tenderness and negative [...] or apprehension. Distal neurovascular exam is normal. ?? The patient has a warm and well-perfused upper extremity with capillary refill less than 2 seconds.Sensation is intact to light touch in terminal nerve distributions. The patient has no palpable epitrochlear lymphadenopathy. ?? Imaging: ?? X-Rays: Personally reviewed. There is no evidence of glenohumeral arthritis. Humeral head remains well centered. ?? Procedure: Injection - Large Joint: R subacromial [...] to verify the correct patient, procedure, equipment, support team assoc and site/side marked as required. Patient was prepped and draped in the usual sterile fashion. Assessment/Plan ?? We discussed treatment options. She has had [...] Procedure Name Priority Date/Time Associated Diagnosis Comments [place] ARTHROCENTESIS ASPIR&/INJ MAJOR JT/BURSA W/O US Routine 04/30/2022 9:50 AM EDT Rotator cuff tendinitis, right documented in this encounter Results * [place] ARTHROCENTESIS ASPIR&/INJ MAJOR JT/BURSA W/O US (04/30/2022 9:50 AM EDT) Addison Daley MD - 04/30/2022 9:50 AM EDT Addison Nicholson MD ? 05/05/2022 11:06 AM Injection - Large Joint: R subacromial [...] to verify the correct patient, procedure, equipment, support team assoc and site/side marked as required. Patient was [...] Once PRN Procedure, 1 dose, Starting on Wed05/05/22 at 1106, Until Wed05/05/22 at 1106, RoutineIndications:Rotator cuff tendinitis, right Given 05/05/2022 11:06 AM EDT 20 mg lidocaine (Xylocaine) 1 % injection 40 mg 40 mg, Intra-articular, Once PRN Procedure, 1 dose, Starting on Wed05/05/22 at 1106, Until Wed05/05/22 at 1106, RoutineIndications:Rotator cuff tendinitis, right Given 05/05/2022 11:06 AM EDT 40 mg triamcinolone acetonide (Kenalog-40) injection 80 mg 80 mg, Intra-articular, Once PRN Procedure, 1 dose, Starting on Wed05/05/22 at 1106, Until Wed05/05/22 at 1106, RoutineIndications:Rotator cuff tendinitis, right Given 05/05/2022 11:06 AM EDT 80 mg documented in this encounter Additional Health Concerns Assessment Noted Time A fall risk assessment has been complete d for the patient 04/30/2022 9:51 AM EDT documented as of this encounter Care Teams Procurement Clerk Relationship Specialty Start Date End Date Pravin Olson MD [address] [place] [address] PCP - General 05/29/21 documented as of this encounter
--- OUTSIDE RECORDS SUMMARY | 2024-10-19 10:39 | XMS_ITS | Encounter Summary ---
Author Organization Healthcare Address [address] [place], [place] [id number] Care Team Providers Care Manager Deli Name Role Phone Unavailable Primary Care Provider Unavailabl e Encounter Details Date Type Department Care Team (Late st Contact Info) Description 04/10/2021 Abstract [facility] Orthopaedic Surgery & Sports Medicine [address], [address] [place] [address] Addison Nicholson MD [address] [facility] [address] [place] [address] Social History Tobacco Use Types Packs/Day Years Used Date Smoking Tobacco: Never Smokeless Tobacco: Never Comments Unknown Sex and Gender Information Value Date Recorded Sex Assigned at Not on file Legal Sex Female 7:32 PM EDT Gender Identity Not on file Sexual Orientation Not on file documented as of this encounter Last Filed Vital Signs Vital Sign Reading Time Taken Comments Blood Pressure 119/81 01/30/2021 1:26 PM EDT Pulse - - Temperature - - Respiratory Rate - - Oxygen Saturation - - Inhaled Oxygen Concentration - - Weight - - Height - - Body Mass Index - - documented in this encounter Plan of Treatment Not on file documented as of this encounter Visit Diagnoses Not on filedocumented in this encounter
--- OUTSIDE RECORDS SUMMARY | 2024-10-19 10:39 | XMS_ITS | Encounter Summary ---
Author Organization Healthcare Address [address] [place] [address] Care Team Providers Care Food Crops Farm Hand Name Role Phone Pravin Olson MD Primary Care Provider [phone] Encounter Details Date Type Department Care Team (Latest Contact Info) Description 01/20/2024 Travel Social History Tobacco Use Types Packs/Day [...] documented as of this encounter Care Teams Food Crops Farm Hand Relationship Specialty Start Date End Date Pravin Olson MD [address] [place] [address] PCP - General 05/29/21 documented as of this encounter
--- OUTSIDE RECORDS SUMMARY | 2024-10-19 10:39 | XMS_ITS | Encounter Summary ---
Author Organization Healthcare Address [address] [place] [address] Care Team Providers Care Acoustical Installer Name Role Phone Pravin Olson MD Primary Care Provider [phone] Encounter Details Date Type Department Care Team (Latest Contact Info) Description 04/15/2023 Travel Social History Tobacco Use Types Packs/Day [...] plan has been documented for the patient 04/15/2023 4:31 PM EDT documented as of this encounter Care Teams Acoustical Installer Relationship Specialty Start Date End Date Pravin Olson MD [address] [place] [address] PCP - General 05/29/21 documented as of this encounter
--- OUTSIDE RECORDS SUMMARY | 2024-10-19 10:39 | XMS_ITS | Encounter Summary ---
Author Organization Healthcare Address [facility] [place] [address] Care Team Providers Care Order Takers Supervisor Name Role Phone Pravin Olson MD Primary Care Provider [phone] Encounter Details Date Type Department Care Team (Latest Contact Info) Description 05/29/2021 Travel Social History Tobacco Use Types Packs/Day [...] on filedocumented in this encounter Care Teams Order Takers Supervisor Relationship Specialty Start Date End Date Pravin Olson MD [address] [place] [address] PCP - General 05/29/21 documented as of this encounter
--- OUTSIDE RECORDS SUMMARY | 2024-10-19 10:39 | XMS_ITS | Encounter Summary ---
Author Organization Healthcare Address [address] [place], [place] [id number] Care Team Providers Care Loading Shovel Oiler Name Role Phone Pravin Olson MD Primary Care Provider [phone] Reason for Referral * Other Medical (Routine) - Pending Review Specialty Diagnoses / Procedures Referred By Geri oneill Referred To Contact Diagnoses Disorder of right rotator cuff Procedures Injection - Large Joint: R subacromial bursa Addison Nicholson MD [address] [address] Phone: tel: fax: Referral ID Status Reason Start Date Expiration Date V isits Requested Visits Authorized [id number] Pending Review 09/24/2023 03/25/2025 1 1 Reason for Visit * Reason Comments Injections Encounter Details Date Type Department Care Team (Late st Contact Info) Description 09/23/2023 8:30 AM EST Office Visit [facility] Orthopaedic Surgery & Sports Medicine [address], [address] [place] [address] Addison Nicholson MD [address] [address] Disorder of right rotator cuff [...] Sign Reading Time Taken Comments Blood Pressure 136/78 09/23/2023 8:14 AM EST Pulse 68 09/23/2023 8:14 AM EST Temperature - - Respiratory Rate - - Oxygen Saturation 100% 09/23/2023 8:14 AM EST Inhaled Oxygen Concentration - - Weight 69.4 kg (153 lb) 09/23/2023 8:14 AM EST Height 160 cm (5' 3 ) 09/23/2023 8:14 AM EST Body Mass Index 27.1 09/23/2023 8:14 AM EST documented in this encounter Miscellaneous Notes * Progress Notes - Addison Nicholson MD - 09/23/2023 8:30 AM ESTAssociated Order(s): Injection - Large Joint: R subacromial bursa Post-Procedure Diagnose(s): Disorder of right rotator cuff History of present illness: Leslie Mix is a 63 y.o. female who follows up for chronic right shoulder pain. She was last seen April 15, 2023 at which time she received right subacromial corticosteroid injection. She states that this provided her months of significant relief of pain. She has a pasthistory of rotator cuff repair over 5 years ago. Over the last 3 months she has had some recurrent soreness in the shoulder. I have reviewed and updated the patient's [...] - Large Joint: R subacromial bursa on 09/23/2023 8:54 AM Indications: pain Details: 22 G needle, [...] to verify the correct patient, procedure, equipment, presidential support specialist and site/side marked as required. Patient was prepped and draped in the usual sterile fashion. Assessment/Plan Leslie Mix is a 63-year-old female with right shoulder rotator cuff disease. We discussed treatment options. We discussed continued conservative management versus surgical intervention. Patient states that she does not desire surgical intervention at this time. We discussed the risks of injection which include continued pain, bleeding and infection. Patient voiced her understanding and desires to proceed with injection. Right shoulder subacromial injection with corticosteroid was administered and the patient tolerated it well. She will follow-up in 3-4 months for repeatclinical evaluation. documented in this encounter Plan of Treatment Not on file documented as of this encounter Procedures Procedure Name Priority Date/Time Associated Diagnosis Comments UT ARTHROCENTESIS ASPIR&/INJ MAJOR JT/BURSA W/O US Routine 09/23/2023 8:54 AM EST Disorder of right rotator cuff documented in this encounter Results * UT ARTHROCENTESIS ASPIR&/INJ MAJOR JT/BURSA W/O US (09/23/2023 8:54 AM EST) Narrative Addison Nicholson MD - 09/23/2023 8:54 AM EST Addison Nicholson MD ? 09/24/2023 12:34 PM Injection - Large Joint: R subacromial bursa on 09/23/2023 8:54 AM Indications: pain Details: 22 G needle, [...] to verify the correct patient, procedure, equipment, presidential support specialist and site/side marked as required. [...] PRN Procedure, 1 dose, Starting on Kelly 09/23/23 at 0854, Until Kelly 09/23/23 at 0854, RoutineIndications:Disorder of right rotator cuff Given 09/23/2023 8:54 AM EST 20 mg lidocaine (Xylocaine) 1 % injection 40 mg 40 mg, Intra-articular, Once PRN Procedure, 1 dose, Starting on Kelly 09/23/23 at 0854, Until Kelly 09/23/23 at 0854, RoutineIndications:Disorder of right rotator cuff Given 09/23/2023 8:54 AM EST 40 mg triamcinolone acetonide (Kenalog-40) injection 80 mg 80 mg, Intra-articular, Once PRN Procedure, 1 dose, Starting on Kelly 09/23/23 at 0854, Until Kelly 09/23/23 at 0854, RoutineIndications:Disorder of right rotator cuff Given 09/23/2023 8:54 AM EST 80 mg documented in this encounter Additional Health Concerns Assessment Noted Time A fall risk assessment has been complete d for the patient 04/15/2023 8:24 AM EDT A Body Mass Index follow-up plan has been documented for the patient 09/24/2023 12:34 PM EST documented as of this encounter Care Teams Loading Shovel Oiler Relationship Specialty Start Date End Date Pravin Olson MD [address] [place] [address] PCP - General 05/29/21 documented as of this encounter
--- OUTSIDE RECORDS SUMMARY | 2024-10-19 10:39 | XMS_ITS | Encounter Summary ---
Author Organization Healthcare Address [address] [id number] Care Team Providers Care Commercial Energy Auditor Name Role Phone Pravin Olson MD Primary Care Provider [phone] Encounter Details Date Type Department Care Team (Latest Contact Info) Description 09/18/2021 9:51 AM EDT - 09/18/2021 11:59 PM EDT Hospital Encounter [facility] [address] [facility], [address] [place] [address] Discharge Disposition: Home or Self Care Social History Tobacco Use Types Packs/Day Years [...] AM EDT documented as of this encounter Medications at Time of Discharge Medication Sig Dispense Quantity Refills Last Filled Start D ate End Date budesonide-formoterol (Symbicort) 80-4.5 MCG/ACT inhaler 01/30/2021 lisinopril-hydroCHLOROt hiazide 10-12.5 MG tablet 01/30/2021 naproxen (Naprosyn) 500 MG tablet 01/30/2021 pantoprazole (ProtoNix) 40 MG EC tablet 01/30/2021 Pitavastatin Calcium (Livalo) 4 MG tablet 01/30/2021 documented as of this encounter Plan of Treatment Not on file documented as of this encounter Procedures Procedure Name Priority Date/Time Associated Diagnosis Comments XR SHOULDER RIGHT 2+ VIEWS Routine 09/18/2021 9:55 AM EDT Rotator cuff tendinitis, right documented [...] XR SHOULDER RIGHT 2+ VIEWS ordered by ADDISON TOLENTINO [id number] CLINICAL INDICATION: Chronic pain of the right [...] XR SHOULDER RIGHT 2+ VIEWS ordered by DADISON [id number] CLINICAL INDICATION: Chronic pain of the right [...] signing this report, I, the attending physician, attnikothat I have personally reviewed the images/data for the aboveexamination(s) and agree with the final edited report. Signed by Blayne Owusu on 09/18/2021 10:09 AM Addison Tolentino MD IMG XR PROCEDURES Final Result documented in this encounter Visit Diagnoses Not on filedocumented in this encounter Care Teams Commercial Energy Auditor Relationship Specialty Start Date End Date Pravin Olson MD [address] [place] [address] PCP - General 05/29/21 documented as of this encounter
--- OUTSIDE RECORDS SUMMARY | 2024-10-19 10:39 | XMS_ITS | Encounter Summary ---
Author Organization Healthcare Address [address] [place], [place] [address] Care Team Providers Care Sales Representative Metals Name Role Phone Pravin Olson MD Primary Care Provider [phone] Reason for Referral * Other Medical (Routine) - Closed Specialty Diagnoses / Procedures Referred By Geri oneill Referred To Contact Diagnoses Rotator cuff tendinitis, right Procedures Injection - Large Joint: R subacromial bursa Addison Nicholson MD [address] [address] Phone: tel: fax: Referral ID Status Reason Start Date Expiration Date Visits Re quested Visits Authorized [id number] Closed 04/15/2023 10/14/2024 1 1 Reason for Visit * Reason Comments Injections Encounter Details Date Type Department Care Team (Late st Contact Info) Description 04/15/2023 8:30 AM EDT Office Visit [facility] Orthopaedic Surgery & Sports Medicine [address], [address] [place] [address] Addison Nicholson MD [address] [address] Rotator cuff tendinitis, right (Primary [...] Sign Reading Time Taken Comments Blood Pressure 105/72 04/15/2023 8:23 AM EDT Pulse - - Temperature - - Respiratory Rate - - Oxygen Saturation - - Inhaled Oxygen Concentration - - Weight 69.4 kg (153 lb) 04/15/2023 8:23 AM EDT Height 160 cm (5' 3 ) 04/15/2023 8:23 AM EDT Body Mass Index 27.1 04/15/2023 8:23 AM EDT documented in this encounter Miscellaneous Notes * Progress Notes - Gabriela Scott DO Camila - 04/15/2023 8:30 AM EDTAssociated Order(s): Injection - Large Joint: R subacromial bursa Post-Procedure Diagnose(s): Rotator cuff tendinitis, right History of present illness: Leslie Mix is a 62 y.o. female who follows up for chronic right shoulder pain. She was last seen 4 months ago at which time she received right subacromial corticosteroid injection. She states that this provided her just over 1 month of significant relief of pain. Shehas a past history of rotator cuff repair over 5 years ago. Over the last 3 months she is continuedto have soreness in the shoulder and presents today desiring repeat injection. I have reviewed and updated the patient's [...] has no palpable epitrochlear lymphadenopathy. Imaging: X-Rays: No new radiographs today. Procedure: Patient ID: Leslie Mix is a 62 y.o. female. Encounter Diagnosis Name Primary? Rotator cuff tendinitis, right Yes Injection - Large Joint: R subacromial bursa on 04/15/2023 9:15 AM Indications: pain Details: 22 G needle, posterior approach Medications: 20 mg bupivacaine 0.5 %; 40 mg lidocaine 1 %; 80 mg triamcinolone acetonide 40 MG/ML Outcome: tolerated well, no immediate complications Procedure, treatment alternatives, risks and benefits explained, specific risks discussed. Consent was given by the patient. Immediately prior to procedure a time out was called to verify the correctpatient, procedure, equipment, business support specialist and site/side marked as required. Patient was prepped and draped in the usual sterile fashion. Assessment/Plan 62-year-old female with right shoulder rotator cuff tendinitis. We discussed treatment options. We discussed continued [...] follow-up in 3-4 months for repeatclinical evaluation. Cosigned by Addison Nichloson MD at 04/15/2023 4:31 PM EDT Associated attestation - Addison Nicholson MD - 04/15/2023 4:31 PM EDT I saw and evaluated the patient with the resident/fellow. I discussed the case with the resident/fellow and agree with the findings and plan as documented. I personally performed the right shoulder subacromial injection. documented in this encounter Plan of Treatment Not on file documented as of this encounter Procedures Procedure Name Priority Date/Time Associated Diagnosis Comments [place] ARTHROCENTESIS ASPIR&/INJ MAJOR JT/BURSA W/O US Routine 04/15/2023 9:15 AM EDT Rotator cuff tendinitis, right documented in this encounter Results * [place] ARTHROCENTESIS ASPIR&/INJ MAJOR JT/BURSA W/O US (04/15/2023 9:15 AM EDT) Narrative Addison Nicholson MD - 04/15/2023 9:15 AM EDT Addison Nicholson MD ? 04/15/2023 ??4:31 PM Injection - Large Joint: R subacromial bursa on 04/15/2023 9:15 AM Indications: pain Details: 22 G needle, [...] to verify the correct patient, procedure, equipment, business support specialist and site/side marked as required. [...] PRN Procedure, 1 dose, Starting on Kelly 04/15/23 at 0915, Until Kelly 04/15/23 at 0915, RoutineIndications:Rotator cuff tendinitis, right Given 04/15/2023 9:15 AM EDT 20 mg lidocaine (Xylocaine) 1 % injection 40 mg 40 mg, Intra-articular, Once PRN Procedure, 1 dose, Starting on Kelly 04/15/23 at 0915, Until Kelly 04/15/23 at 0915, RoutineIndications:Rotator cuff tendinitis, right Given 04/15/2023 9:15 AM EDT 40 mg triamcinolone acetonide (Kenalog-40) injection 80 mg 80 mg, Intra-articular, Once PRN Procedure, 1 dose, Starting on Kelly 04/15/23 at 0915, Until Kelly 04/15/23 at 0915, RoutineIndications:Rotator cuff tendinitis, right Given 04/15/2023 9:15 AM EDT 80 mg documented in this encounter Additional Health Concerns Assessment Noted Time A fall risk assessment has been complete d for the patient 04/15/2023 8:24 AM EDT A Body Mass Index follow-up plan has been documented for the patient 04/15/2023 4:31 PM EDT documented as of this encounter Care Teams Sales Representative Metals Relationship Specialty Start Date End Date Pravin Olson MD [address] [place] [address] PCP - General 05/29/21 documented as of this encounter
--- OUTSIDE RECORDS SUMMARY | 2024-10-19 10:39 | XMS_ITS | Encounter Summary ---
Author Organization Healthcare Address [facility] [place] [address] Care Team Providers Care Cosmetic Counselor Name Role Phone Pravin Olson MD Primary Care Provider [phone] Encounter Details Date Type Department Care Team (Latest Contact Info) Description 12/17/2022 Travel Social History Tobacco Use Types Packs/Day [...] documented as of this encounter Care Teams Cosmetic Counselor Relationship Specialty Start Date End Date Pravin Olson MD [address] [place] [id number] PCP - General 05/29/21 documented as of this encounter
--- OUTSIDE RECORDS SUMMARY | 2024-10-19 10:39 | XMS_ITS | Encounter Summary ---
Author Organization Healthcare Address [address] [id number] Care Team Providers Care Rides Attendant Name Role Phone Unavailable Primary Care Provider Unavailabl e Encounter Details Date Type Department Care Team (Late st Contact Info) Description 07/06/2017 [facility] Vitals Encounter [facility] OUTPATIENT CONVERSIONS [address] [place] [address] ProviderBarbara MD [facility] [place] [address] Social History Tobacco Use Types [...] - - Weight 74.4 kg (164 lb) 07/06/2017 1:48 PM EDT Height 160 cm (5' 3 ) 07/06/2017 1:48 PM EDT Body Mass Index 29.05 07/06/2017 1:48 PM EDT documented in this encounter Plan of Treatment Not on file documented as of this encounter Visit Diagnoses Not on filedocumented in this encounter
--- NOTE | 2024-10-19 10:40 | XR_ITS ---
FINAL REPORT CLINICAL HISTORY: Foot Pain COMPARISON: 09/04/2019 FINDINGS: RIGHT FOOT: Three views of the right foot were obtained. There is a transverse fracture of the proximal fifth metatarsal, which appears subacute. This fracture was not present on the prior films of 2019. Mild degenerative change is present in the right foot. There is no soft tissue abnormality. IMPRESSION: Transverse fracture of the proximal fifth metatarsal, favor subacute. Reviewed, Interpreted and Dictated by Arnaud Morales III, MD Transcribed by Gladys Puri Authenticated and [facility]
--- OUTSIDE RECORDS SUMMARY | 2024-10-19 10:40 | XMS_ITS | Encounter Summary ---
Author Organization Healthcare Address [facility] [place] [address] Care Team Providers Care Residential Designer Name Role Phone Unavailable Primary Care Provider Unavailabl e Encounter Details Date Type Department Care Team (Late st Contact Info) Description 09/24/2016 [facility] AEHR Vitals Encounter [facility] OUTPATIENT CONVERSIONS [address] [place] [address] ProviderBarbara MD [facility] [place] [address] Social History Tobacco Use Types [...] - - Weight 74.4 kg (164 lb) 09/24/2016 2:20 PM EST Height 160 cm (5' 3 ) 09/24/2016 2:20 PM EST Body Mass Index 29.05 09/24/2016 2:20 PM EST documented in this encounter Plan of Treatment Not on file documented as of this encounter Visit Diagnoses Not on filedocumented in this encounter
== END 2024-10-19 23:59 | disposition home or self-care (01) ==
PROVIDERS: PCP Internal Medicine; Visit Provider Nurse Practitioner
DX: M79.671 Pain in right foot (principal)
CPT/HCPCS: 73630

== ENCOUNTER 2024-11-27 12:00 | Outpatient (CLI) | payer MEDICARE, SELFPAY ==
--- NOTE | 2024-11-27 12:04 | XR_ITS ---
FINAL REPORT CLINICAL HISTORY: right 5th met fracture evaluation COMPARISON: 10/19/2024 FINDINGS: Three views of the right foot again show a partially healed proximal fifth metatarsal fracture. There is incomplete bony union of the inferior, lateral cortex similar to the previous exam. There is no displacement. Generalized osteopenia is noted. IMPRESSION: Stable appearance with incomplete bony union of the proximal fifth metatarsal. Reviewed, Interpreted and Dictated by Winsome Rocha MD Transcribed by Hanane Neri Authenticated and [facility]
== END 2024-11-27 23:59 | disposition home or self-care (01) ==
LOC: RAD 12:01
PROVIDERS: PCP Internal Medicine; Visit Provider Nurse Practitioner
DX: S99.191A Other physeal fracture of right metatarsal, initial encounter for closed fracture (principal); S92.301A Fracture of unspecified metatarsal bone(s), right foot, initial encounter for closed fracture
CPT/HCPCS: 73630

== ENCOUNTER 2024-11-28 09:58 | Outpatient (CLI) | payer MEDICARE, SELFPAY ==
--- NOTE | 2024-11-28 10:02 | XR_ITS ---
FINAL REPORT CLINICAL HISTORY: Lower thoracic back pain no trauma COMPARISON: None FINDINGS: Three views of the thoracic spine were obtained. There are subtle compression fractures of T9 and T11, probably chronic. Mild thoracic kyphosis is noted. There is no subluxation. Osteopenia is present. IMPRESSION: Minimal lower thoracic spine compression fractures favored to be chronic. MRI could confirm. Reviewed, Interpreted and Dictated by Wnisome Rocha MD Transcribed by Mary Gonzalez Authenticated and [facility]
[2024-11-28 13:28] LABS: Basophils # 0.1 K/mm3 (0-0.2); Basophils % 1.4 % (0.1-2.0); Eosinophils # 0.1 K/mm3 (0.0-0.4); Eosinophils % 3.2 % (0.1-12.0); Hematocrit 43.8 % (37.0-47.0); Hemoglobin 14.3 g/dL (12.2-16.2); Lymphocytes # 1.5 K/mm3 (0.7-4.5); Lymphocytes % 33.9 % (10-50); Mean Corpuscular HGB Conc 32.6 g/dL (31.8-35.4); Mean Corpuscular Hemoglobin 30.6 pg (27.0-31.2); Mean Corpuscular Volume 93.6 fl (81-99); Mean Platelet Volume 9.6 fl (7.4-10.4); Monocytes # 0.4 K/mm3 (0.1-1.0); Monocytes % 9.2 % (1.7-9.3); Neutrophils # 2.3 K/mm3 (1.8-7.8); Neutrophils % 52.1 % (37.0-80.0); Platelet Count 263 K/mm3 (142-424); Red Blood Count 4.68 M/mm3 (4.20-5.40); Red Cell Distribution Width 12.8 % (11.5-17.5); White Blood Count 4.3 K/mm3 (4.8-10.8)
[2024-11-28 14:40] LABS: Alanine Aminotransferase 23 U/L (12-78); Albumin Level 4.4 g/dl (3.5-5.0); Albumin/Globulin Ratio 2.1 (1.1-1.8); Alkaline Phosphatase 95 U/L (38-126); Anion Gap 11.1 mEq/L (5-15); Aspartate Amino Transferase 34 U/L (14-36); Bilirubin,Total 0.5 mg/dl (0.2-1.3); Blood Urea Nitrogen 24 mg/dl (7-17); Calcium 9.2 mg/dl (8.4-10.2); Carbon Dioxide 31 mmol/L (22.0-30.0); Chloride 101 mmol/L (98-107); Chol/HDL Ratio 2.8 (1-3.5); Cholesterol 157 mg/dl (140-200); Estimated Glomerular Filt Rate 72 ml/min (>60); GFR (African American) 87 ML/MIN (>60); Globulin 2.1 g/dL (1.3-3.2); Glucose 80 mg/dl (74-100); HDL Cholesterol 56 mg/dl (40-60); Potassium 4.1 mmoL/L (3.5-5.1); Sodium 139 mmol/L (136-145); Total Protein,Serum 6.5 g/dl (6.3-8.2); Triglycerides 157 mg/dl (30-150); VLDL Cholesterol 31 mg/dL (0-40)
[2024-11-28 14:51] LABS: Direct LDL Cholesterol 72.86 mg/dL (100-129)
[2024-11-29 15:36] LABS: 25-OH Vitamin D, Total 24.6 ng/mL (30-100)
== END 2024-11-28 23:59 | disposition home or self-care (01) ==
LOC: RAD 09:58
PROVIDERS: PCP Internal Medicine; Visit Provider Internal Medicine
DX: M54.6 Pain in thoracic spine (principal); I10 Essential (primary) hypertension; E78.5 Hyperlipidemia, unspecified; E55.9 Vitamin D deficiency, unspecified
CPT/HCPCS: 72072; 80053; 80061; 82306; 85025

== ENCOUNTER 2024-12-19 08:54 | Outpatient (CLI) | payer MEDICARE, SELFPAY ==
--- NOTE | 2024-12-19 08:55 | XR_ITS ---
FINAL REPORT TECHNIQUE: Bone densitometry calculations of the lumbar spine and left hip were obtained. CLINICAL HISTORY: OSTEOPORIS, non healing fx COMPARISON: None FINDINGS: Using L1-4, the bone mineral density of the spine is 0.729 g/cm2, corresponding to T-score of -2.9. Using the left hip, the bone mineral density of the femoral neck is 0.508 g/cm2, corresponding to a T-score of -3.1. Using the right hip, the bone mineral density of the femoral neck is 0.531 g/cm?, corresponding to a T-score of -2.9. NOTE: T-score: Standard deviation compared with peak bone mass of young adult mean. *Following the recommendations of the International Society of Bone Densitometry, classification of hip BMD is based on the lower of two T-scores; total hip or femoral neck. IMPRESSION: Osteoporosis: Lowest T-score is at or below -2.5. This patient's T-score meets the World Health Organization criteria for osteoporosis. Reviewed, Interpreted and Dictated by Rogerio Fernando MD Transcribed by Gladys Puri Authenticated and [facility]
== END 2024-12-19 23:59 | disposition home or self-care (01) ==
LOC: RAD 08:55
PROVIDERS: PCP Internal Medicine; Visit Provider Internal Medicine
DX: M81.0 Age-related osteoporosis without current pathological fracture (principal); M79.671 Pain in right foot; S92.301A Fracture of unspecified metatarsal bone(s), right foot, initial encounter for closed fracture
CPT/HCPCS: 77080

== ENCOUNTER 2025-01-22 10:34 | Outpatient (CLI) | payer MEDICARE, SELFPAY ==
--- NOTE | 2025-01-22 10:37 | XR_ITS ---
FINAL REPORT CLINICAL HISTORY: fracture evaluation COMPARISON: 11/27/2024 FINDINGS: RIGHT FOOT Three views demonstrate a persistent, transverse lucency through the base of the fifth metatarsal. It is nondisplaced. There is sclerosis at the fracture margins. This appears similar to the prior exam. No new fracture is identified. IMPRESSION: Persistent fracture line concerning for possible nonunion. Reviewed, Interpreted and Dictated by Rogerio Fernando MD Transcribed by Hanane Neri Authenticated and [facility]
== END 2025-01-22 23:59 | disposition home or self-care (01) ==
LOC: RAD 10:35
PROVIDERS: PCP Internal Medicine; Visit Provider Nurse Practitioner
DX: M79.671 Pain in right foot (principal); S99.191A Other physeal fracture of right metatarsal, initial encounter for closed fracture
CPT/HCPCS: 73630

== ENCOUNTER 2025-03-12 16:11 | Outpatient (CLI) | payer MEDICARE, SELFPAY ==
--- NOTE | 2025-03-12 16:30 | MM_ITS ---
PROCEDURE INFORMATION: Exam: MG Bilateral Screening 3D Mammography Exam date and time: 03/12/2025 4:21 PM Age: 64 years old Clinical indication: Screening exam. TECHNIQUE: Imaging protocol: Bilateral Screening tomosynthesis and 2D mammography including computer-aided detection (CAD) when performed. COMPARISON: 1. MG MM DIG SCREENING MAMM BI W/CAD 12/22/2022 11:10 AM 2. MG DMSB DIG MAMM-SCREEN STEPHANI 01/30/2016 9:42 AM FINDINGS: MAMMOGRAPHY: Breast composition: There are scattered areas of fibroglandular density. Mass: No suspicious masses. Architectural distortion: None. Calcifications: No suspicious calcifications. Asymmetric density: None. Skin thickening: None. Axillary adenopathy: None. IMPRESSION: No mammographic evidence of malignancy. Annual screening is recommended unless otherwise clinically indicated. ASSESSMENT: BI-RADS Category 1: Negative.
== END 2025-03-12 23:59 | disposition home or self-care (01) ==
LOC: RAD 16:12
PROVIDERS: PCP Internal Medicine; Visit Provider Internal Medicine
DX: Z12.31 Encounter for screening mammogram for malignant neoplasm of breast (principal)
CPT/HCPCS: 77063; 77067

== ENCOUNTER 2025-03-15 12:16 | Outpatient (CLI) | payer MEDICARE, SELFPAY ==
--- NOTE | 2025-03-15 12:20 | XR_ITS ---
FINAL REPORT CLINICAL HISTORY: 5th met FX F/U COMPARISON: 01/22/2025 FINDINGS: RIGHT FOOT 3 views of the right foot were obtained. There has been progressive healing of fracture of the base of the 5th metatarsal. Bridging callus formation is noted. Visualized joint spaces are normally aligned. Soft tissues are unremarkable. IMPRESSION: Healing 5th metatarsal fracture. Reviewed, Interpreted and Dictated by Rogerio Fernando MD Transcribed by Mary Gonzalez Authenticated and [facility]
== END 2025-03-15 23:59 | disposition home or self-care (01) ==
LOC: RAD 12:18
PROVIDERS: PCP Internal Medicine; Visit Provider Nurse Practitioner
DX: S99.191A Other physeal fracture of right metatarsal, initial encounter for closed fracture (principal)
CPT/HCPCS: 73630

== ENCOUNTER 2025-05-28 09:00 | Outpatient (CLI) | payer MEDICARE, SELFPAY ==
[2025-05-28 17:23] LABS: Alanine Aminotransferase 16 U/L (12-78); Albumin Level 4.2 g/dl (3.5-5.0); Albumin/Globulin Ratio 2.0 (1.1-1.8); Alkaline Phosphatase 81 U/L (38-126); Anion Gap 15.3 mEq/L (5-15); Aspartate Amino Transferase 26 U/L (14-36); Bilirubin,Total 0.6 mg/dl (0.2-1.3); Blood Urea Nitrogen 14 mg/dl (7-17); Calcium 8.9 mg/dl (8.4-10.2); Carbon Dioxide 28 mmol/L (22.0-30.0); Chloride 100 mmol/L (98-107); Cholesterol 194 mg/dl (140-200); Creatinine,Serum 0.60 mg/dl (0.52-1.04); Estimated Glomerular Filt Rate 100 ml/min (>60); GFR (African American) 121 ML/MIN (>60); Globulin 2.1 g/dL (1.3-3.2); Glucose 77 mg/dl (74-100); HDL Cholesterol 54 mg/dl (40-60); Potassium 4.3 mmoL/L (3.5-5.1); Sodium 139 mmol/L (136-145); Total Protein,Serum 6.3 g/dl (6.3-8.2); Triglycerides 161 mg/dl (30-150)
--- OUTSIDE RECORDS SUMMARY | 2025-05-29 12:18 | XMS_ITS | Clinical Summary ---
Author Organization Healthcare Address [address] [place] [address] Care Team Providers Care Cabin Worker Name Role Phone Pravin Olson MD Primary Care Provider [phone] Allergies Active Allergy Reactions Criticality Noted Date Comments Cefazolin Rash Low 08/12/2012 Cephalexin Unknown - Patient states they do not know rxn details Low 09/24/2016 Lanolin Rash Low 08/22/2022 Other Anaphylaxis High 08/12/2012 throat swells Peanut Allergen Powder-Dnfp Swelling High 11/01/2019 Penicillins Rash,Unknown - Patie nt states they do not know rxn details Low 08/12/2012 [place] Hives Medium 08/22/2022 Tomato Itching Medium 08/12/2012 [...] on 01/20/2024 cholecalciferol (Vitamin D-3) 250 MCG (00079 UT) capsule Take 1 capsule (10,000 Units) [...] Health Maintenance Due Date Last Done Comments [facility]-Bone Density Scan 1960 [facility]-Depression Screening 1958 [facility]-Hepatitis C Screening 1958 [facility]-Medicare Annual Wellness (AWV) 1960 [facility]-Infant/Child/Adol SDOH Screenings 1958 [facility]- SDOH Screenings 1976 [facility]-Adult SDOH Screenings 1976 CT Colonography 2003 Colonoscopy 2003 FIT-DNA 2003 FIT 2003 FOBT 2003 Sigmoidoscopy 2003 [facility]-Colorectal Cancer Screening 2003 [facility]-Breast Cancer Screening 2008 [facility]-Zoster Vaccines (1 of 2) 2008 [id number] Vaccine (2 - season) 2024 02/22/2021 [facility]-Influenza Vaccine (#1) 2025 11/13/2022 [facility]-DTaP,Tdap,and Td Vaccines (2 - Td or Tdap) 06/27/2033 06/27/2023 [facility]-RSV Vaccine: 60+ Years or (1 - 1-dose 75+ series) 2033 [facility]-Pneumococcal Vaccine: 50+ Years Completed 10/04/2023 [facility]-Obesity Intervention Completed 024, 09/23/2023, 04/15/2023, Additional history exists HPV Vaccines Aged Out No longer eligi ble based on patient's age to complete this topic [facility]-HIB Vaccines Aged Out No longer e [...] complete this topic Insurance MEDICARE Care Teams Cabin Worker Relationship Specialty Start Date End Date Pravin Olson MD [facility], [id number] [place] [address] PCP - General 05/29/21
== END 2025-05-28 23:59 | disposition home or self-care (01) ==
LOC: LAB.DROPOF 05-29 12:16
PROVIDERS: PCP Internal Medicine; Visit Provider Internal Medicine
DX: E78.5 Hyperlipidemia, unspecified (principal); I10 Essential (primary) hypertension; Z78.9 Other specified health status
CPT/HCPCS: 80053; 80061

== ENCOUNTER 2025-06-18 09:48 | Outpatient (CLI) | payer MEDICARE, SELFPAY ==
--- NOTE | 2025-06-18 09:54 | XR_ITS ---
FINAL REPORT CLINICAL HISTORY: Foot pain follow up COMPARISON: 03/15/2025 FINDINGS: RIGHT FOOT 3 views of the right foot were obtained. There has been continuous healing with progressive callus formation of the 5th metatarsal fracture. Visualized joint spaces are normally aligned. Soft tissues are unremarkable. IMPRESSION: Progressive healing 5th metatarsal fracture. Reviewed, Interpreted and Dictated by Rogerio Fernando MD Transcribed by Mary Gonzalez Authenticated and [facility]
--- OUTSIDE RECORDS SUMMARY | 2025-06-18 09:55 | XMS_ITS | Clinical Summary ---
Author Organization Healthcare Address [address] [place] [address] Care Team Providers Care Flight Attendant Name Role Phone Pravin Olson MD Primary Care Provider [phone] Allergies Active Allergy Reactions Criticality Noted Date Comments Cefazolin Rash Low 08/12/2012 Cephalexin Unknown - Patient states they do not know rxn details Low 09/24/2016 Lanolin Rash Low 08/22/2022 Other Anaphylaxis High 08/12/2012 throat swells Peanut Allergen Powder-Dnfp Swelling High 11/01/2019 Penicillins Rash,Unknown - Patie nt states they do not know rxn details Low 08/12/2012 [place] Hives Medium 08/22/2022 Tomato Itching Medium 08/12/2012 [...] on 01/20/2024 cholecalciferol (Vitamin D-3) 250 MCG (40801 UT) capsule Take 1 capsule (10,000 Units) [...] Health Maintenance Due Date Last Done Comments [facility]-Bone Density Scan 1960 [facility]-Depression Screening 1958 [facility]-Hepatitis C Screening 1958 [facility]-Medicare Annual Wellness (AWV) 1958 [facility]-/Child/Adol SDOH Screenings 1958 [facility]- SDOH Screenings 1976 [facility]-Adult SDOH Screenings 1976 CT Colonography 2003 Colonoscopy 2003 FIT-DNA 2003 FIT 2003 FOBT 2003 Sigmoidoscopy 2003 [facility]-Colorectal Cancer Screening 2003 [facility]-Breast Cancer Screening 2008 [facility]-Zoster Vaccines (1 of 2) 2008 [id number] Vaccine (2 - season) 2024 02/22/2021 [facility]-Influenza [...] complete this topic Insurance MEDICARE Care Teams Flight Attendant Relationship Specialty Start Date End Date Pravin Olson MD [facility] [address] [place] [address] PCP - General 05/29/21
== END 2025-06-18 23:59 | disposition home or self-care (01) ==
LOC: RAD 09:49
PROVIDERS: PCP Internal Medicine; Visit Provider Nurse Practitioner
DX: M77.41 Metatarsalgia, right foot (principal); M84.374D Stress fracture, right foot, subsequent encounter for fracture with routine healing; X58.XXXA Exposure to other specified factors, initial encounter
CPT/HCPCS: 73630

== ENCOUNTER 2025-09-26 09:52 | Outpatient (CLI) | payer MEDICARE, SELFPAY ==
--- NOTE | 2025-09-26 09:55 | XR_ITS ---
FINAL REPORT CLINICAL HISTORY: Foot Pain FINDINGS: RIGHT FOOT Three views were obtained. There is no fracture or dislocation. There are moderate degenerative changes. The bones are osteopenic. No soft tissue abnormality is identified. IMPRESSION: Moderate degenerative changes. Reviewed, Interpreted and Dictated by Winsome Rocha MD Transcribed by Edna Damon Authenticated and [facility]
--- OUTSIDE RECORDS SUMMARY | 2025-09-26 10:01 | XMS_ITS | Clinical Summary ---
Author Organization Healthcare Address [address] [place] [address] Care Team Providers Care Pc Support Specialist Name Role Phone Pravin Olson MD Primary Care Provider [phone] Allergies Active Allergy Reactions Criticality Noted Date Comments Cefazolin Rash Low 08/12/2012 Cephalexin Unknown - Patient states they do not know rxn details Low 09/24/2016 Lanolin Rash Low 08/22/2022 Other Anaphylaxis High 08/12/2012 throat swells Peanut Allergen Powder-Dnfp Swelling High 11/01/2019 Penicillins Rash,Unknown - Patie nt states they do not know rxn details Low 08/12/2012 [place] Hives Medium 08/22/2022 Tomato Itching Medium 08/12/2012 [...] on 01/20/2024 cholecalciferol (Vitamin D-3) 250 MCG (72082 UT) capsule Take 1 capsule (10,000 Units) [...] Health Maintenance Due Date Last Done Comments [facility]-Bone Density Scan 1958 [facility]Depression Screening 1958 [facility]-Hepatitis C Screening 1958 [facility]-Medicare Annual Wellness (AWV) 1958 [facility]-Infant/Child/Adol SDOH Screenings 1958 [facility]- SDOH Screenings 1976 [facility]-Adult SDOH Screenings 1976 CT Colonography 2003 Colonoscopy 2003 FIT-DNA 2003 FIT 2003 FOBT 2003 Sigmoidoscopy 2003 [facility]-Colorectal Cancer Screening 2003 [facility]-Breast Cancer Screening 2008 [facility]-Zoster Vaccines (1 of 2) 2008 [id number] Vaccine (2 - 2024- season) 2025 02/22/2021 [facility]-Influenza Vaccine (#1) 2025 11/13/2022 [facility]-DTaP,Tdap,and [...] complete this topic Insurance MEDICARE Care Teams Pc Support Specialist Relationship Specialty Start Date End Date Pravin Olson MD [facility] [address] [place] [address] PCP - General 05/29/21
== END 2025-09-26 23:59 | disposition home or self-care (01) ==
LOC: RAD 09:53
PROVIDERS: PCP Internal Medicine; Visit Provider Nurse Practitioner
DX: M19.071 Primary osteoarthritis, right ankle and foot (principal); M85.871 Other specified disorders of bone density and structure, right ankle and foot
CPT/HCPCS: 73630